=== PATIENT | female | born 1990 | race Caucasian/White ===

== ENCOUNTER 2018-09-17 02:07 | Observation (INO) | payer OTHER ==
--- NOTE | 2018-09-17 02:28 | ED Physician Documentation ---
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 She has increased pain in severity and increased bleeding. She notes the pain is cramping in nature. She is not lightheaded or dizzy. Review of Systems Constitutional: denies: Fever Eyes: denies: Decreased vision Ears: denies: Ear pain Nose: denies: Congestion Throat: denies: Sore throat Respiratory: denies: Dyspnea, Cough GI: reports: Abdominal Pain, Nausea, Vomiting : denies: Dysuria, Frequency Skin: denies: Rash Musculoskeletal: denies: Neck pain, Back pain Neurologic: denies: Generalized weakness, Focal weakness, Numbness PD PAST MEDICAL HISTORY - Past Medical History Past Medical History: Yes - Present Medications Home Medications: Ambulatory Orders Medication Instructions Recorded Confirmed No Known Home Medications 09/17/18 09/17/18 - Allergies Allergies/Adverse Reactions: Allergies Allergy/AdvReac Type Severity Reaction Status Date / Time No Known Drug Allergies Allergy Verified 09/17/18 02:14 - Social History Does the pt smoke?: No Smoking Status: Never smoker Does the pt drink ETOH?: Yes Does the pt have substance abuse?: No - Immunizations Immunizations are current?: Yes - POLST Patient has POLST: No PD ED PE NORMAL - Vitals Vital signs reviewed: Yes (tachy) - General General: Alert and oriented X 3, No acute distress, Well developed/nourished - HEENT HEENT: Atraumatic, PERRL - Neck Neck: Supple, no meningeal sign - Cardiac Cardiac: RRR, No murmur - Respiratory Respiratory: No respiratory distress, Clear bilaterally - Abdomen Abdomen: Soft, Other (tenderness in the left lower quadrant without gaurding or rebound ) - Back Back: No CVA TTP, No spinal TTP - Derm Derm: Normal color, Warm and dry, No rash - Extremities Extremities: No deformity, No edema, No calf tenderness / cord - Neuro Neuro: Alert and oriented X 3, straight cutter machine 2-12 intact, No motor deficit, No sensory deficit, Normal speech Eye Opening: Spontaneous Motor: Obeys Commands Verbal: Oriented GCS Score: 15 - Psych Psych: Normal mood, Normal affect Results - Vitals Vitals: Vital Signs - 24 hr 09/17/18 09/17/18 09/17/18 02:10 02:11 04:55 Temperature 36.2 C L 36.4 C L 36.1 C L Heart Rate 114 H 98 99 Respiratory 18 16 18 Rate Blood Pressure 130/71 126/80 125/80 O2 Saturation 100 100 100 Oxygen O2 Source Room air - Labs Labs: Laboratory Tests 09/17/18 09/17/18 09/17/18 02:35 04:50 04:50 WBC 11.5 H RBC 3.56 L Hgb 11.6 L Hct 35.9 L MCV 100.8 H MCH 32.6 H MCHC 32.3 RDW 12.5 Plt Count 244 MPV 10.4 Neut # (Auto) 8.5 H Lymph # (Auto) 1.9 [place] # (Auto) 1.0 Eos # (Auto) 0.0 Baso # (Auto) 0.1 Absolute Nucleated RBC 0.00 Nucleated RBC % 0.0 Sodium 137 Potassium 3.5 Chloride 98 L Carbon Dioxide 23 Anion Gap 16.0 H BUN 10 Creatinine 0.7 Estimated GFR (MDRD) 101 Glucose 113 H Calcium 9.1 Total Bilirubin 0.6 AST 19 ALT 18 Alkaline Phosphatase 50 Total Protein 7.5 Albumin 4.5 Globulin 3.0 Albumin/Globulin Ratio 1.5 Lipase 27 HCG, Quant 1521.00 - Rads (name of study) u/s pelvis Radiology: Prelim report reviewed (Impression: 1. No intrauterine gestational sac chemistry. There is a large blood clot in the pelvis, with moderate amount of fluid within the pelvis. Fluid also seen within Morison's pouch. Combined findings are worrisome for a ruptured ectopic .), EMP read indepedently, See rad report PD MEDICAL DECISION MAKING - ED course Complexity details: reviewed results, re-evaluated patient, considered differential, d/w patient ED course: 27-year-old female with a prior history of ectopic appears to have a ectopic that appears to have ruptured this morning.The patient has remained hemodynamically stable and Dr. Driver is consulted in the case, comes to the emergency department and will take the patient into the operating room. 2 units of blood are ordered 2 IVs are placed and the patient is prepared for surgery. Departure - Departure Disposition: ED Transfer to [facility] Clinical Impression: Ruptured ectopic
--- NOTE | 2018-09-17 04:38 | Ultrasound Report ---
Reason: cramping pain decreasing hcG ? ectopic Procedure Date: 09/17/2018 Accession Number: [id number] / [id number] Procedure: US - OB First Trimester CPT Code: FULL RESULT: EXAM: FIRST TRIMESTER OBSTETRIC ULTRASOUND (Less than 11 weeks) EXAM DATE: 09/17/2018 04:30 AM. CLINICAL HISTORY: Cramping pain, decreasing hcG, question ectopic. LMP: Unknown. COMPARISONS: None. TECHNIQUE: Transabdominal and transvaginal ultrasound examination with static image documentation. FINDINGS: LMP: 08/02/2018. Estimated gestational age: 6 weeks 4 days. . There is a large blood clot within the cul-de-sac region. Moderate amount of free fluid is noted, extending into the Morison's pouch. Uterus is normal in position and configuration. No intrauterine gestational sac demonstrated. Heterogeneous fluid within the endometrial cavity is noted, suggesting blood products. Normal appearance of the right ovary is noted, measuring 3.3 x 2.0 x 1.9 cm. Left ovary measures 3.6 x 2.2 x 2.7 cm. There is a small corpus luteum cyst within the left ovary. Normal blood flow to the left ovary. IMPRESSION: 1. No intrauterine gestational sac demonstrated. 2. There is a large blood clot within the pelvis, with a moderate amount of fluid within the pelvis. Fluid also seen within the Morison's pouch. Combined findings are worrisome for a ruptured ectopic . RADIA The call report notification system was initiated by Dr. Guille Oliva at 04:36 AM on 09/17/2018. The above call report findings were discussed with Davis Andrade by Dr. Guille lOiva at 04:39 AM on 09/17/2018.
[2018-09-17] MEDS ORDERED: LACTATED RINGERS 1,000 ML IV STA (04:53)
[2018-09-17 04:54] LABS: BASOPHILS # (AUTO) 0.1 10^3/uL (0.0-0.1); BASOPHILS % (AUTO) 0.5 %; EOSINOPHILS % (AUTO) 0.3 %; HGB - HEMOGLOBIN 11.6 g/dL (12.0-16.0); LYMPHOCYTES # (AUTO) 1.9 10^3/uL (1.5-3.5); LYMPHOCYTES % (AUTO) 16.3 %; MEAN CORPUSCULAR HEMOGLOBIN 32.6 pg (27.0-31.0); MEAN CORPUSCULAR HGB CONC 32.3 g/dL (32.0-36.0); MEAN CORPUSCULAR VOLUME 100.8 fL (81.0-99.0); MEAN PLATELET VOLUME 10.4 fL (7.9-10.8); MONOCYTES % (AUTO) 8.7 %; NEUTROPHILS # (AUTO) 8.5 10^3/uL (1.5-6.6); NEUTROPHILS % (AUTO) 73.9 %; PLT - PLATELET COUNT 244 10^3/uL (130-450); RED BLOOD COUNT 3.56 10^6/uL (4.20-5.40); RED CELL DISTRIBUTION WIDTH 12.5 % (12.0-15.0); WHITE BLOOD COUNT 11.5 x10^3/uL (4.8-10.8)
[2018-09-17 05:06] LABS: ALBUMIN 4.5 g/dL (3.2-5.5); ALBUMIN/GLOBULIN RATIO 1.5 (1.0-2.2); BILIRUBIN,TOTAL 0.6 mg/dL (0.2-1.0); CALCIUM 9.1 mg/dL (8.5-10.3); CREATININE 0.7 mg/dL (0.4-1.0); TOTAL PROTEIN 7.5 g/dL (6.7-8.2)
--- NOTE | 2018-09-17 05:29 | HISTORY & PHYSICAL EXAMINATION ---
HPI - History Obtained From History obtained from: Patient Exam limitations: No limitations - History of Present Illness Pain Quality: reports: Sharp (Rates pain 8/10) HPI Comment/Other: Ms Sullivan is a 27 yo with a history of ectopic presents with likely ruptured ectopic . S: Ms Sullivan reports and LMP of 08/02/18, providing an LANIE of 05/09/19 and estimated gestational age of 6w4d. She was being followed by [facility] for possible ectopic. She had an HCG of 2700 that had dropped to about 2200. She reports that the plan was to have methotrexate treatment on Wednesday. This evening she experienced worsening abdominal pain that became intolerable and she presented to the ER. She is noted to have a moderate amount of free fluid in the abdomen, extending to Gonzalez's pouch. No clear location of ectopic. Tachycardic to 114. BP wnl. Pain noted to be on left side. Hx of blood transfusion after prior ectopic. She is unsure of the prior 's locations. She underwent a D&C due to of unknown origin. The pathology did not support IUP and she was given methotrexate. For reasons that are unclear, she was transfused during or immediately after the D&C. No other surgeries. 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 No MICHELLE - POLST Patient has POLST: No Meds/Allgy - Home Medications Home Medications: Ambulatory Orders Medication Instructions Recorded Confirmed No Known Home Medications 09/17/18 09/17/18 - Allergies Allergies/Adverse Reactions: Allergies Allergy/AdvReac Type Severity Reaction Status Date / Time No Known Drug Allergies Allergy Verified 09/17/18 02:14 Review of Systems - All Other Systems All Other Systems: reports: Reviewed and negative - Other Findings Other Findings: As per HPI, remaining systems are negative Exam - Vital Signs Vital Signs: Vital Signs x48h Temp Pulse Resp BP Pulse Ox 09/17/18 04:55 97.0 F L 99 18 125/80 100 07/06/19 02:11 97.5 F L 98 16 126/80 100 09/17/18 02:10 97.2 F L 114 H 18 130/71 100 - Physical Exam General Appearance: positive: Mild distress Neck: positive: Nml inspection Respiratory: positive: No respiratory distress Cardiovascular: positive: Tachycardia Peripheral Pulses: positive: 2+ Abdomen: positive: Tenderness (Tender and moderately distended) Skin: positive: Color nml, Pallor Extremities: positive: Non-tender, Nml appearance Neurologic/Psychiatric: positive: Oriented x3, Mood/affect nml Results - Lab Results Fish Bones: 09/17/18 04:50 09/17/18 04:50 Other Lab Results: Lab Results x24hrs 09/17/18 09/17/18 09/17/18 Range/Units 04:50 04:50 02:35 WBC 11.5 H (4.8-10.8) x10^3/uL RBC 3.56 L (4.20-5.40) 10^6/uL Hgb 11.6 L (12.0-16.0) g/dL Hct 35.9 L (37.0-47.0) % MCV 100.8 H (81.0-99.0) fL MCH 32.6 H (27.0-31.0) pg MCHC 32.3 (32.0-36.0) g/dL RDW 12.5 (12.0-15.0) % Plt Count 244 (130-450) 10^3/uL MPV 10.4 (7.9-10.8) fL Neut # (Auto) 8.5 H (1.5-6.6) 10^3/uL Lymph # (Auto) 1.9 (1.5-3.5) 10^3/uL [place] # (Auto) 1.0 (0.0-1.0) 10^3/uL Eos # (Auto) 0.0 (0.0-0.7) 10^3/uL Baso # (Auto) 0.1 (0.0-0.1) 10^3/uL Absolute Nucleated RBC 0.00 x10^3/uL Nucleated RBC % 0.0 /100WBC Sodium 137 (135-145) mmol/L Potassium 3.5 (3.5-5.0) mmol/L Chloride 98 L (101-111) mmol/L Carbon Dioxide 23 (21-32) mmol/L Anion Gap 16.0 H (6-13) BUN 10 (6-20) mg/dL Creatinine 0.7 (0.4-1.0) mg/dL Estimated GFR (MDRD) 101 (>89) Glucose 113 H (70-100) mg/dL Calcium 9.1 (8.5-10.3) mg/dL Total Bilirubin 0.6 (0.2-1.0) mg/dL AST 19 (10-42) IU/L ALT 18 (10-60) IU/L Alkaline Phosphatase 50 (42-121) IU/L Total Protein 7.5 (6.7-8.2) g/dL Albumin 4.5 (3.2-5.5) g/dL Globulin 3.0 (2.1-4.2) g/dL Albumin/Globulin Ratio 1.5 (1.0-2.2) Lipase 27 (22-51) U/L HCG, Quant 1521.00 mIU/mL - Diagnostic Imaging Results Diagnostic Imaging Results: positive: Final report reviewed, Critical result Diagnostic Imaging Results Comments: Abdomen with moderate free fluid and large blood clot. Fluid extended to Gonzalez's Pouch c/w ruptured ectopic - Other Other Results/Comments: HCG 1521 HCt 35.9 Impression/Plan - Problem List Problem List: Ruptured ectopic -Radiology did not identify source of ectopic. Moderately free fluid in abdomen extending to Gonzalez's Pouch -patient currently stable with tachycardia -Consented to salpingectomy for ruptured ectopic. Anticipate open procedure for abdominal exploration. Consent includes transfusion. - Cefazolin 2g IV OCTOR -2 lines placed and typed and crossed for 2 units -Proceed to OR for emergent procedure
[2018-09-17] MEDS ORDERED: BUPIVACAINE 0.25% PF 30 ML VIAL ONE (05:47)
[2018-09-17] MEDS ORDERED: LIDOCAINE MPF 1%-EPI 1:200000 30 ML VIAL ONE (05:47)
--- NOTE | 2018-09-17 05:48 | ANESTHESIA ---
Pre-Anesthesia VS, & Labs - Diagnosis ruptured ectopic - Procedure open salphingectomy and treatment of ruptured ectopic Vital Signs: Temp Pulse Resp BP Pulse Ox 36.6 C 100 18 123/72 100 09/17/18 05:37 09/17/18 05:37 09/17/18 05:37 09/17/18 05:37 09/17/18 05:37 Height 5 ft 5 in Weight (kg) 65.771 kg Body Mass Index 24.1 - NPO >8 hours - Is Patient ?: Yes - Lab Results Current Lab Results: Laboratory Tests 09/17/18 04:50: Blood Type O POSITIVE, Antibody Screen NEGATIVE, Crossmatch IS Only See Detail 09/17/18 04:50: Sodium 137, Potassium 3.5, Chloride 98 L, Carbon Dioxide 23, Anion Gap 16.0 H, BUN 10, Creatinine 0.7, Estimated GFR (MDRD) 101, Glucose 113 H, Calcium 9.1, Total Bilirubin 0.6, AST 19, ALT 18, Alkaline Phosphatase 50, Total Protein 7.5, Albumin 4.5, Globulin 3.0, Albumin/Globulin Ratio 1.5, Lipase 27 09/17/18 04:50: WBC 11.5 H, RBC 3.56 L, Hgb 11.6 L, Hct 35.9 L, MCV 100.8 H, MCH 32.6 H, MCHC 32.3, RDW 12.5, Plt Count 244, MPV 10.4, Neut # (Auto) 8.5 H, Lymph # (Auto) 1.9, [place] # (Auto) 1.0, Eos # (Auto) 0.0, Baso # (Auto) 0.1, Absolute Nucleated RBC 0.00, Nucleated RBC % 0.0 09/17/18 02:35: HCG, Quant 1521.00 Fish Bones: 09/17/18 04:50 09/17/18 04:50 Home Medications and Allergies Home Medications: Ambulatory Orders No Known Home Medications 09/17/18 Active Medications Lactated Ringer's (Lr) 1,000 mls @ 50 mls/hr IV .Q20H STA Stop: 09/18/18 00:52 Last Admin: 09/17/18 04:50 Dose: 50 mls/hr No Known Home Medications 09/17/18 Allergies/Adverse Reactions: Allergies Allergy/AdvReac Type Severity Reaction Status Date / Time No Known Drug Allergies Allergy Verified 09/17/18 02:14 Anes History & Medical History - Anesthetic History Anesthesia Complications: reports: No previous complications - Medical History Cardiovascular: reports: None Pulmonary: reports: None Gastrointestinal: reports: None Urinary: reports: None Neuro: reports: None Musculoskeletal: reports: None Endocrine/Autoimmune: reports: None Smoking Status: Never smoker - Surgical History Gynecologic: Dilation and currettage Exam General: Alert Dental: WNL Mallampati classification: I Thyromental Distance: greater than 6 cm Respiratory: Lungs clear Cardiovascular: Regular rate Mental/Cognitive Status: Alert/Oriented X3 Plan Anesthesia Type: General Consent for Procedure(s) Verified and Reviewed: Yes Code Status: Attempt Resuscitation ASA classification: 2-Mild systemic disease Is this case an emergency?: Yes
[2018-09-17] MEDS ORDERED: ONDANSETRON 4 MG/2 ML VIAL IVP ONE (07:08)
[2018-09-17] MEDS ORDERED: LIDOCAINE-MPF 2% 5 ML VIAL IM ONE (07:08)
[2018-09-17] MEDS ORDERED: NEOSTIGMINE 1 MG/1 ML 10 ML MDV IVP ONE (07:08)
[2018-09-17] MEDS ORDERED: GLYCOPYRROLATE 1 MG/5 ML VIAL IVP ONE (07:08)
[2018-09-17] MEDS ORDERED: ACETAMINOPHEN 1,000 MG/100 ML 100 ML IV ONE (07:08)
[2018-09-17] MEDS ORDERED: HYDROmorphone 1 MG/ML SYRINGE IM ONE (07:08)
[2018-09-17] MEDS ORDERED: fentaNYL 100 MCG/2 ML VIAL IVP ONE (07:08)
[2018-09-17] MEDS ORDERED: ROCURONIUM 50 MG/5 ML VIAL IVP ONE (07:08)
[2018-09-17] MEDS ORDERED: ceFAZolin 1 GM VIAL IV ONE (07:08)
[2018-09-17] MEDS ORDERED: MIDAZOLAM 2 MG/2 ML VIAL IVP ONE (07:08)
[2018-09-17] MEDS ORDERED: PROPOFOL 200 MG/20 ML VIAL IVP ONE (07:08)
[2018-09-17] MEDS ORDERED: DEXAMETHASONE 4 MG/ML VIAL IVP ONE (07:08)
[2018-09-17] MEDS ORDERED: LIDOCAINE MPF 1%-EPI 1:200000 30 ML VIAL SUBQ ONE (07:32)
[2018-09-17] MEDS ORDERED: LACTATED RINGERS 1,000 ML IV ONE ×2 (07:34→07:35)
[2018-09-17] MEDS ORDERED: KETOROLAC 30 MG/ML VIAL ONE (08:05)
[2018-09-17] MEDS ORDERED: METOCLOPRAMIDE 10 MG/2 ML VIAL IVP PRN (08:06)
[2018-09-17] MEDS ORDERED: LORazepam 2 MG/ML VIAL IVP PRN (08:06)
[2018-09-17] MEDS ORDERED: ACETAMINOPHEN 325 MG TABLET PO PRN (08:06)
[2018-09-17] MEDS ORDERED: PHENOL THROAT SPRAY 177 ML MM PRN (08:06)
[2018-09-17] MEDS ORDERED: HYDROmorphone 0.5 MG/0.5 ML SYRINGE IVP PRN (08:06)
[2018-09-17] MEDS ORDERED: SODIUM CHLORIDE FLUSH 0.9% 10 ML SYRINGE IVP PRN (08:06)
[2018-09-17] MEDS ORDERED: ONDANSETRON 4 MG/2 ML VIAL IVP PRN (08:06)
[2018-09-17] MEDS ORDERED: IBUPROFEN 600 MG TABLET PO PRN (08:06)
--- NOTE | 2018-09-17 08:35 | OPERATIVE REPORT ---
Operative Report - General Admit Date: 09/17/18 Procedure Date: 09/17/18 Planned Procedure: Open salpingectomy/exploratory laparotomy Pre-Op Diagnosis: Ruptured ectopic Procedure Performed: Open salpingectomy, exploratory laparotomy Post Op Diagnosis: Same and hemoperitoneum - Procedure Note Primary Surgeon: Lalita Driver MD Secondary Surgeon: Davis Dotson MD Anesthesia Technique: General ET tube Pathology: Left fallopian tube, in fragments IV Fluids (mL): 1,100 Estimated Blood Loss (mL): 25 (1000 cc in abdomen) Indications: Ms Sullivan is a 27 yo here with suspected ruptured ectopic with hemoperitoneum on us imaging. Her LMP was 08/02/18, providing LANIE of 05/09/18, dating to 6w4d. Her initial HCG was 2700 and had dropped to 2200 and now ~1500 at presentation. Her provider had planned to administer Methotrexate on Wednesday. She developed severe abdominal pain overnight and was woken from sleep. Had emesis related to pain. Tachycardia in ER but BPs maintained in n ormal range. US showed moderate fluid in abdomen up to Gonzalez's pouch. Site of ectopic not indicated on imaging. Given high suspicion of rupture, will proceed to OR for exploratory laparotomy, anticipated salpingectomy, and D&C in the event that site of ectopic is not identified. Findings: Left fallopian tube with complete rupture at isthmus, edematous tissue. Estimat ed 1000 cc of blood in pelvis/abdomen. Normal appearing rght tube and ovaries bilaterally Complications: none - Other Other Information/Narrative: Ms. Sullivan presented to the ED with suspected ecoptic, severe abdominal pain, and evidence of hemoperitoneum on us imaging. Risks and benefits of the procedure were discussed and consent was obtained, including consent for transfusion. The patient was taken to the operating room where general anesthesia was administered without difficulty. She was placed in supine position. The patient was prepped and draped in the usual sterile fashion. A Pfannenstiel skin incision was made with scalpel and carried through to the underlying layer of fascia using the Bovie. The fascia was incised in the midline and extended laterally using Anita cautery. Smith clamps were used to grasp the superior aspect of the fascial incision, which was elevated and the underlying rectus mu scles were dissected off bluntly combined with cautery. Attention was then turned to the inferior aspect, which was grasped with Smith clamps, elevated and the underlying rectus muscles dissected up bluntly combined with cautery. The rectus muscles were dissected in the midline. The peritoneum was identified using blunt dissection and entered in this manner and extended superiorly and inferiorly with good visualization of the bladder. At this time, the blood found in the abdomen was suctioned. The bowel was packed with moist laparotomy sponge. The left fallopian tube was grossly ruptured. The fallopian tube was elevated with Nerstrand clamps and excised along the underlying mesosalpinx to the cornua using a laparoscopic Ligasure. A portion of the fimbriated end was noted to have from the bulk of the fallopian tube. It was similarly excised using the Ligasure device and sent for pathologic evaluation with the rest of the tubal specimen. Hemostasis was visualized. At this time, the right tube and ovary were examined and were found to be normal in appearance. The pelvis was cleared off clots and was copiously irrigated. The upper abdomen was similarly cleared of clots and irrigated. The left adnexa was reexamined and it was again noted to be hemostatic. At this time, the laparotomy sponges were removed. The peritoneum was reapproximated using 2-0 Vicryl in a running suture. The rectus muscles were reapproximated using 3-0 Vicryl. The fascia was reapproximated with looped PDS suture. The subcutaneous layer was closed with 2-0 Chromc gut. The skin was closed with subcutaneous suture using 4-0 Monocryl along the left 3/4 of the incision. The right quarter of the incison was closed with interrupted mattress suture x4 using 3-0 Nylon in an attempt to restore tattooed imagery. Sponge, lap, and instrument counts were correct x2. D&C was deemed not indicated. The patient was stable at the completion of the procedure and was subsequently transferred to the recovery room in stable condition. Dr. Dotson assisted with multiple portions of the procedure including retraction and incisional closure.
[2018-09-17] MEDS ORDERED: SODIUM CHLORIDE 0.9% 1,000 ML IV SCH (09:00)
[2018-09-17 09:51] LABS: BASOPHILS % (AUTO) 0.2 %; EOSINOPHILS # (AUTO) 0.2 10^3/uL (0.0-0.7); EOSINOPHILS % (AUTO) 1.8 %; HGB - HEMOGLOBIN 10.2 g/dL (12.0-16.0); LYMPHOCYTES # (AUTO) 0.7 10^3/uL (1.5-3.5); LYMPHOCYTES % (AUTO) 5.6 %; MEAN CORPUSCULAR HEMOGLOBIN 33.4 pg (27.0-31.0); MEAN CORPUSCULAR HGB CONC 33.6 g/dL (32.0-36.0); MEAN CORPUSCULAR VOLUME 99.7 fL (81.0-99.0); MONOCYTES # (AUTO) 0.4 10^3/uL (0.0-1.0); MONOCYTES % (AUTO) 3.4 %; NEUTROPHILS # (AUTO) 10.6 10^3/uL (1.5-6.6); NEUTROPHILS % (AUTO) 88.4 %; PLT - PLATELET COUNT 197 10^3/uL (130-450); RED BLOOD COUNT 3.05 10^6/uL (4.20-5.40); RED CELL DISTRIBUTION WIDTH 12.3 % (12.0-15.0)
[2018-09-17] MEDS: SODIUM CHLORIDE FLUSH 0.9% 10 ML SYRINGE IVP SCH ×2 (10:14→17:21)
[2018-09-17] MEDS: oxyCODONE 5 MG TABLET PO PRN ×2 (10:52→17:20)
[2018-09-17] MEDS: KETOROLAC 30 MG/ML VIAL IVP SCH ×2 (14:54→20:00)
[2018-09-17 18:52] LABS: MEAN CORPUSCULAR HEMOGLOBIN 32.7 pg (27.0-31.0); MEAN CORPUSCULAR VOLUME 102.2 fL (81.0-99.0); MEAN PLATELET VOLUME 10.5 fL (7.9-10.8); RED BLOOD COUNT 2.75 10^6/uL (4.20-5.40); RED CELL DISTRIBUTION WIDTH 12.5 % (12.0-15.0); WHITE BLOOD COUNT 12.1 x10^3/uL (4.8-10.8)
--- NOTE | 2018-09-17 19:12 | PROVIDER PROGRESS NOTE ---
Subjective - Prog Note Date Prog Note Date: 09/17/18 Prog Note Time: 19:10 - Subjective Pt reports feeling: Improved (Patient is POD#0 s/p exlap/open salpingectomy d/t rupture ectopic. Doing well. Tolerating po. Has been up to sitting in chair. Pain adequately managed. No dizziness or lightheadedness.) Objective - Vital Signs/Intake & Output Vital Signs: Vital Signs x48h Temp Pulse Resp BP Pulse Ox 09/17/18 16:55 98.1 F 92 18 106/64 100 09/17/18 15:54 81 108/56 L 09/17/18 12:55 98.4 F 91 18 107/59 L 98 Intake & Output: Intake & Output 09/14/18 09/15/18 09/16/18 09/17/18 23:59 23:59 23:59 23:59 Intake Total 1445 Output Total 1420 Balance 25 - Objective General Appearance: positive: No acute distress Respiratory: positive: No respiratory distress Abdomen: positive: Other (appropriately tender. Dressing with sreosang drainage expected given subQ administration of 30 cc of xylocaine at close of surgery) Skin: positive: Color nml Extremities: positive: Non-tender Neurologic/Psychiatric: positive: Oriented x3 - Lab Results Fish Bones: 09/17/18 18:45 09/17/18 04:50 Other Labs: Lab Results x24hrs 09/17/18 09/17/18 09/17/18 Range/Units 18:45 09:45 05:10 WBC 12.1 H 12.0 H (4.8-10.8) x10^3/uL RBC 2.75 L 3.05 L (4.20-5.40) 10^6/uL Hgb 9.0 L 10.2 L (12.0-16.0) g/dL Hct 28.1 L 30.4 L (37.0-47.0) % MCV 102.2 H 99.7 H (81.0-99.0) fL MCH 32.7 H 33.4 H (27.0-31.0) pg MCHC 32.0 33.6 (32.0-36.0) g/dL RDW 12.5 12.3 (12.0-15.0) % Plt Count 191 197 (130-450) 10^3/uL MPV 10.5 10.0 (7.9-10.8) fL Neut # (Auto) 10.6 H (1.5-6.6) 10^3/uL Lymph # (Auto) 0.7 L (1.5-3.5) 10^3/uL [place] # (Auto) 0.4 (0.0-1.0) 10^3/uL Eos # (Auto) 0.2 (0.0-0.7) 10^3/uL Baso # (Auto) 0.0 (0.0-0.1) 10^3/uL Absolute Nucleated RBC 0.00 x10^3/uL Nucleated RBC % 0.0 /100WBC Sodium (135-145) mmol/L Potassium (3.5-5.0) mmol/L Chloride (101-111) mmol/L Carbon Dioxide (21-32) mmol/L Anion Gap (6-13) BUN (6-20) mg/dL Creatinine (0.4-1.0) mg/dL Estimated GFR (MDRD) (>89) Glucose (70-100) mg/dL Calcium (8.5-10.3) mg/dL Total Bilirubin (0.2-1.0) mg/dL AST (10-42) IU/L ALT (10-60) IU/L Alkaline Phosphatase (42-121) IU/L Total Protein (6.7-8.2) g/dL Albumin (3.2-5.5) g/dL Globulin (2.1-4.2) g/dL Albumin/Globulin Ratio (1.0-2.2) Lipase (22-51) U/L HCG, Quant mIU/mL Blood Type Blood Type Recheck O POSITIVE Antibody Screen Crossmatch IS Only 09/17/18 09/17/18 09/17/18 Range/Units 04:50 04:50 04:50 WBC 11.5 H (4.8-10.8) x10^3/uL RBC 3.56 L (4.20-5.40) 10^6/uL Hgb 11.6 L (12.0-16.0) g/dL Hct 35.9 L (37.0-47.0) % MCV 100.8 H (81.0-99.0) fL MCH 32.6 H (27.0-31.0) pg MCHC 32.3 (32.0-36.0) g/dL RDW 12.5 (12.0-15.0) % Plt Count 244 (130-450) 10^3/uL MPV 10.4 (7.9-10.8) fL Neut # (Auto) 8.5 H (1.5-6.6) 10^3/uL Lymph # (Auto) 1.9 (1.5-3.5) 10^3/uL [place] # (Auto) 1.0 (0.0-1.0) 10^3/uL Eos # (Auto) 0.0 (0.0-0.7) 10^3/uL Baso # (Auto) 0.1 (0.0-0.1) 10^3/uL Absolute Nucleated RBC 0.00 x10^3/uL Nucleated RBC % 0.0 /100WBC Sodium 137 (135-145) mmol/L Potassium 3.5 (3.5-5.0) mmol/L Chloride 98 L (101-111) mmol/L Carbon Dioxide 23 (21-32) mmol/L Anion Gap 16.0 H (6-13) BUN 10 (6-20) mg/dL Creatinine 0.7 (0.4-1.0) mg/dL Estimated GFR (MDRD) 101 (>89) Glucose 113 H (70-100) mg/dL Calcium 9.1 (8.5-10.3) mg/dL Total Bilirubin 0.6 (0.2-1.0) mg/dL AST 19 (10-42) IU/L ALT 18 (10-60) IU/L Alkaline Phosphatase 50 (42-121) IU/L Total Protein 7.5 (6.7-8.2) g/dL Albumin 4.5 (3.2-5.5) g/dL Globulin 3.0 (2.1-4.2) g/dL Albumin/Globulin Ratio 1.5 (1.0-2.2) Lipase 27 (22-51) U/L HCG, Quant mIU/mL Blood Type O POSITIVE Blood Type Recheck Antibody Screen NEGATIVE Crossmatch IS Only See Detail 09/17/18 Range/Units 02:35 WBC (4.8-10.8) x10^3/uL RBC (4.20-5.40) 10^6/uL Hgb (12.0-16.0) g/dL Hct (37.0-47.0) % MCV (81.0-99.0) fL MCH (27.0-31.0) pg MCHC (32.0-36.0) g/dL RDW (12.0-15.0) % Plt Count (130-450) 10^3/uL MPV (7.9-10.8) fL Neut # (Auto) (1.5-6.6) 10^3/uL Lymph # (Auto) (1.5-3.5) 10^3/uL [place] # (Auto) (0.0-1.0) 10^3/uL Eos # (Auto) (0.0-0.7) 10^3/uL Baso # (Auto) (0.0-0.1) 10^3/uL Absolute Nucleated RBC x10^3/uL Nucleated RBC % /100WBC Sodium (135-145) mmol/L Potassium (3.5-5.0) mmol/L Chloride (101-111) mmol/L Carbon Dioxide (21-32) mmol/L Anion Gap (6-13) BUN (6-20) mg/dL Creatinine (0.4-1.0) mg/dL Estimated GFR (MDRD) (>89) Glucose (70-100) mg/dL Calcium (8.5-10.3) mg/dL Total Bilirubin (0.2-1.0) mg/dL AST (10-42) IU/L ALT (10-60) IU/L Alkaline Phosphatase (42-121) IU/L Total Protein (6.7-8.2) g/dL Albumin (3.2-5.5) g/dL Globulin (2.1-4.2) g/dL Albumin/Globulin Ratio (1.0-2.2) Lipase (22-51) U/L HCG, Quant 1521.00 mIU/mL Blood Type Blood Type Recheck Antibody Screen Crossmatch IS Only Assessment/Plan - Problem List (1) Ruptured ectopic Impression: Doing well Drop in HCT from 35 to 28, asymptomatic. Check CBC again in am. Repeat HCG Encourage ambulation Tolerating po Voiding Pain adequately managed Anticipate DC home in am
[2018-09-18] MEDS: KETOROLAC 30 MG/ML VIAL IVP SCH (01:16)
[2018-09-18] MEDS: SODIUM CHLORIDE FLUSH 0.9% 10 ML SYRINGE IVP SCH ×2 (01:17→10:43)
[2018-09-18 04:52] LABS: HGB - HEMOGLOBIN 8.8 g/dL (12.0-16.0); MEAN CORPUSCULAR HGB CONC 32.4 g/dL (32.0-36.0); MEAN CORPUSCULAR VOLUME 101.9 fL (81.0-99.0); MEAN PLATELET VOLUME 10.3 fL (7.9-10.8); RED BLOOD COUNT 2.67 10^6/uL (4.20-5.40); RED CELL DISTRIBUTION WIDTH 12.5 % (12.0-15.0); WHITE BLOOD COUNT 9.7 x10^3/uL (4.8-10.8)
[2018-09-18 08:19] VITALS: BP 110/66
--- NOTE | 2018-09-18 08:48 | PROVIDER PROGRESS NOTE ---
Subjective - Prog Note Date Prog Note Date: 09/18/18 Prog Note Time: 08:00 - Subjective Pt reports feeling: Improved (Doing well. Pain well managed. Has been up and ambulating, tolerating po. Voiding. No concerns) Objective - Vital Signs/Intake & Output Vital Signs: Vital Signs x48h Temp Pulse Resp BP Pulse Ox 09/18/18 08:19 99.0 F 106 H 16 110/66 100 09/18/18 04:45 99.3 F 93 16 102/59 L 98 09/18/18 01:00 98.4 F 92 16 92/52 L 98 Intake & Output: Intake & Output 09/15/18 09/16/18 09/17/18 09/18/18 23:59 23:59 23:59 23:59 Intake Total 1888 Output Total 2120 1100 Balance -232 -1100 - Objective General Appearance: positive: No acute distress, Other (Sitting up in chair) Neck: positive: Nml inspection Respiratory: positive: No respiratory distress Abdomen: positive: Other (Mild/appropriately tender. No distention. No guarding. Incision: Dressing removed. Steris stained with serosang fluid but otherwise CDI) Skin: positive: Color nml - Lab Results Fish Bones: 09/18/18 04:40 09/17/18 04:50 Other Labs: Lab Results x24hrs 09/18/18 09/18/18 09/17/18 Range/Units 04:40 04:40 18:45 WBC 9.7 12.1 H (4.8-10.8) x10^3/uL RBC 2.67 L 2.75 L (4.20-5.40) 10^6/uL Hgb 8.8 L 9.0 L (12.0-16.0) g/dL Hct 27.2 L 28.1 L (37.0-47.0) % MCV 101.9 H 102.2 H (81.0-99.0) fL MCH 33.0 H 32.7 H (27.0-31.0) pg MCHC 32.4 32.0 (32.0-36.0) g/dL RDW 12.5 12.5 (12.0-15.0) % Plt Count 176 191 (130-450) 10^3/uL MPV 10.3 10.5 (7.9-10.8) fL Neut # (Auto) (1.5-6.6) 10^3/uL Lymph # (Auto) (1.5-3.5) 10^3/uL Levy # (Auto) (0.0-1.0) 10^3/uL Eos # (Auto) (0.0-0.7) 10^3/uL Baso # (Auto) (0.0-0.1) 10^3/uL Absolute Nucleated RBC x10^3/uL Nucleated RBC % /100WBC HCG, Quant 660.00 mIU/mL 09/17/18 Range/Units 09:45 WBC 12.0 H (4.8-10.8) x10^3/uL RBC 3.05 L (4.20-5.40) 10^6/uL Hgb 10.2 L (12.0-16.0) g/dL Hct 30.4 L (37.0-47.0) % MCV 99.7 H (81.0-99.0) fL MCH 33.4 H (27.0-31.0) pg MCHC 33.6 (32.0-36.0) g/dL RDW 12.3 (12.0-15.0) % Plt Count 197 (130-450) 10^3/uL MPV 10.0 (7.9-10.8) fL Neut # (Auto) 10.6 H (1.5-6.6) 10^3/uL Lymph # (Auto) 0.7 L (1.5-3.5) 10^3/uL Levy # (Auto) 0.4 (0.0-1.0) 10^3/uL Eos # (Auto) 0.2 (0.0-0.7) 10^3/uL Baso # (Auto) 0.0 (0.0-0.1) 10^3/uL Absolute Nucleated RBC 0.00 x10^3/uL Nucleated RBC % 0.0 /100WBC HCG, Quant mIU/mL Assessment/Plan - Problem List (1) Ruptured ectopic Impression: POD#1 s/p ex-lap/open salpingectomy for ruptured ectopic -Doing well post op. Meeting goals for discharge -HCT relatively stable -HCG showed additional drop of about 66% -Routine dc instructions reviewed -FU in clinic in one week for suture removal
[2018-09-18] MEDS ORDERED: POLYETHYLENE GLYCOL 3350 17 GM PACKET PO SCH (09:00)
--- NOTE | 2018-09-18 09:13 | DISCHARGE SUMMARY ---
"Discharge Summary Admit Date: 09/17/18 Discharge Date: 09/18/18 Discharging Provider: MD Neisha Code Status: Attempt Resuscitation Condition at Discharge: Good Discharge Disposition: 01 Home, Self Care Discharge Facility Name: [facility] - DIAGNOSES Admission Diagnoses: Ruptured ectopic Discharge Diagnoses with Status of Each Condition: Ruptured ectopic : managed with emergent exploratory laparotomy and salpingectomy - HPI History of Present Illness: Ms Sullivan is a 27 yo with a history of ectopic presents with likely ruptured ectopic . Ms Sullivan reported an LMP of 08/02/18, providing an LANIE of 05/09/19 and estim ated gestational age of 6w4d. She was being followed by [facility] for possible ectopic. She had an HCG of 2700 that had dropped to about 2200. She reports that the plan was to have methotrexate treatment on 09/19/18. The evening of presentation she experienced worsening abdominal pain that became intolerable and she presented to the ER. She is noted to have a moderate amount of free fluid in the abdomen, extending to Gonzalez's pouch. No clear location of ectopic. Tachycardic to 114. BP wnl. Pain noted to be on left side. Hx of blood transfusion after prior ectopic. She is unsure of the prior 's locations. She underwent a D&C due to of unknown origin. The pathology did not support IUP and she was given methotrexate. For reasons that are unclear, she was transfused during or immediately after the D&C. No other surgeries. - HOSPITAL COURSE Hospital Course: Ms Sullivan was taken to the OR for an exploratory laparotomy and open salpingectomy. She was estimated to have more than a liter of blood in her abdomen. Her left fallopian tube had ruptured in a semi-stellate fashion. It was excised as described in the surgical report. She was admitted for postoperative observation given acute blood loss anemia. Post op course was uncomplicated. She was discharged to home on POD#1. - ALLERGIES Allergies/Adverse Reactions: Allergies Allergy/AdvReac Type Severity Reaction Status Date / Time No Known Drug Allergies Allergy Verified 09/17/18 02:14 - MEDICATIONS Home Medications: Ambulatory Orders Medication Instructions Recorded Confirmed No Known Home Medications 09/17/18 09/17/18 Home Medications Other | Comments: Discharge home with paper Rx for: oxycodone 5 mg tabs #24, O RF Ibuprofen 600 mg tabs #90, one RF Acetaminophen 325 mg #90, one RF Docusate 100 mg #90, one RF - PHYSICAL EXAM AT DISCHARGE General Appearance: positive: No acute distress Neck: positive: Nml inspection Respiratory: positive: No respiratory distress Skin: positive: Color nml Extremities: positive: Non-tender, No pedal edema Physical Exam Other/Comments: ABD: Soft and ND, appropriately tender. Steristrips with serosang drainage and otherwise CDI. - LABS Result Diagrams: 09/18/18 04:40 09/17/18 04:50 - FOLLOW UP Follow Up: FU in clinic in one week for suture removal. - TIME SPENT Time Spent in Discharge (Minutes): 45"
== END 2018-09-18 09:50 | disposition home or self-care (01) ==
LOC: ED 02:07 → MS2 05:12 → INTOOBSV 05:12
PROVIDERS: ADMIT Obstetrics & Gynecology; ATTEND Obstetrics & Gynecology
PROC: 10T20ZZ Resection of Products of Conception, Ectopic, Open Approach (ICD-10-PCS; principal; 2018-09-17 06:00)
DX: O00.102 Left tubal pregnancy without intrauterine pregnancy (principal); O08.1 Delayed or excessive hemorrhage following ectopic and molar pregnancy; O90.81 Anemia of the puerperium; D62 Acute posthemorrhagic anemia; L81.8 Other specified disorders of pigmentation
CPT/HCPCS: 36415; 59120; 76801; 76817; 80053; 83690; 84702; 85025; 85027; 86850; 86900; 86901; 86920; 99284; A9270; G0378; J0131; J1170; J7120

== ENCOUNTER 2018-09-23 09:48 | Outpatient (CLI) | payer OTHER | END 2018-09-23 09:49 | disposition home or self-care (01) | LOC: LAB 09:48 | PROVIDERS: ATTEND Obstetrics & Gynecology | DX: O00.90 Unspecified ectopic pregnancy without intrauterine pregnancy (principal); Z98.890 Other specified postprocedural states | CPT/HCPCS: 36415; 84702 ==

== ENCOUNTER 2018-10-07 13:59 | Outpatient (CLI) | payer OTHER | END 2018-10-07 14:00 | disposition home or self-care (01) | LOC: LAB 13:59 | PROVIDERS: ATTEND Nurse Practitioner Obstetrics & Gynecology | DX: O00.90 Unspecified ectopic pregnancy without intrauterine pregnancy (principal); Z79.890 Hormone replacement therapy | CPT/HCPCS: 36415; 84702 ==

== ENCOUNTER 2020-04-19 08:00 | Outpatient (CLI) | payer OTHER | END 2020-04-19 23:59 | disposition home or self-care (01) | LOC: LAB.R 08:00 | PROVIDERS: ATTEND Nurse Practitioner Obstetrics & Gynecology | DX: Z36.85 Encounter for antenatal screening for Streptococcus B (principal) | CPT/HCPCS: 87797 ==

== ENCOUNTER 2020-05-03 19:31 | Inpatient (IN) | payer OTHER ==
[2020-05-03] MEDS ORDERED: LACTATED RINGERS 1,000 ML IV ONE (19:55)
[2020-05-03] MEDS ORDERED: SODIUM CHLORIDE FLUSH 0.9% 10 ML SYRINGE IVP PRN (19:55)
[2020-05-03 20:14] LABS: RUPTURE OF MEMBRANES PLUS POSITIVE (NEGATIVE)
[2020-05-03] MEDS ORDERED: ONDANSETRON 4 MG/2 ML VIAL IVP PRN (20:46)
[2020-05-03] MEDS ORDERED: OXYTOCIN 10 UNIT/ML VIAL IM PRN (20:46)
[2020-05-03] MEDS ORDERED: miSOPROStoL 200 MCG TABLET BC PRN (20:46)
[2020-05-03] MEDS ORDERED: OXYTOCIN/SODIUM CHLORIDE 500 ML IV PRN (20:46)
[2020-05-03] MEDS ORDERED: CARBOPROST TROMETHAMINE 250 MCG/ML AMP IM PRN (20:46)
[2020-05-03] MEDS ORDERED: LIDOCAINE-MPF 1% 30 ML VIAL ID PRN (20:46)
[2020-05-03] MEDS ORDERED: METHYLERGONOVINE 0.2 MG/ML VIAL IM PRN (20:46)
[2020-05-03] MEDS ORDERED: TRANEXAMIC ACID IN NACL 1,000 MG/100 ML BAG IV PRN (20:46)
[2020-05-03] MEDS ORDERED: fentaNYL 100 MCG/2 ML VIAL IVP PRN (20:46)
[2020-05-03 20:54] LABS: BASOPHILS # (AUTO) 0.1 10^3/uL (0.0-0.1); BASOPHILS % (AUTO) 0.5 %; EOSINOPHILS # (AUTO) 0.1 10^3/uL (0.0-0.7); EOSINOPHILS % (AUTO) 0.8 %; HGB - HEMOGLOBIN 12.5 g/dL (12.0-16.0); MEAN CORPUSCULAR HEMOGLOBIN 29.8 pg (27.0-31.0); MEAN CORPUSCULAR HGB CONC 32.6 g/dL (32.0-36.0); MEAN CORPUSCULAR VOLUME 91.6 fL (81.0-99.0); MEAN PLATELET VOLUME 11.5 fL (7.9-10.8); MONOCYTES # (AUTO) 1.1 10^3/uL (0.0-1.0); MONOCYTES % (AUTO) 9.5 %; NEUTROPHILS # (AUTO) 8.3 10^3/uL (1.5-6.6); NEUTROPHILS % (AUTO) 70.3 %; PLT - PLATELET COUNT 230 10^3/uL (130-450); RED BLOOD COUNT 4.19 10^6/uL (4.20-5.40); RED CELL DISTRIBUTION WIDTH 13.8 % (12.0-15.0); WHITE BLOOD COUNT 11.9 x10^3/uL (4.8-10.8)
--- NOTE | 2020-05-03 21:13 | HISTORY & PHYSICAL EXAMINATION ---
Admit History - Visit Reason Visit Reason: Membranes rupture (@ 1900 w/o labor) - : 4 Parity: 0 Premature: 0 Ectopic: 2 : 1 Care: positive: [facility], Other ([facility] after transfer of care from [facility] at 31.3wks) Risk/History: positive: None Complications This : positive: None Smoking Status: Never smoker - Mother's Labs Mother's Blood Type: positive: O Mother's RH: positive: Positive GBS: positive: Group B Step Negative Rubella Status: positive: Immune - Other Maternal History Other Maternal History: -29yo at 38.5wks gestation who presents to Labor and Delivery with reports of loss of fluid without contractions. She felt the first gush at 1900 and reports the fluid as clear -Reports movement -Denies ctx/VB - care with [facility] which has been adequate after transfer of care from [facility] at 31.3wks - Complications -none -Dating Criteria -at 10.0wks c/w LMP -OB Hx (patient would not like to discuss history with partner present) *G1: 2017- ectopic *G2: 2019- ectopic *G3: 2019 TAB *G4: Current -Medications * vitamin-daily -Allergies *NKDA -Medical History *Ectopic x2 -Surgical History *Removal of fallopian tube/ex lap (2018) *Dilatation & Curettage (2016) *Buchtel teeth (2010) -Family History *Mother- MVA *Father- MT at age <55 -Social History *Non contributory - Labs, Immunizations, and Findings Initial U/S: @ 10.0wks c/w LMP dating performed by [facility] O pos/Rubella immune VZV: immune Genetic testing: CF negative; serum integrated screen - negative FAS: 12/26/2019 FAS WNL with the exception of poor visualization of cardiac structurs and stomach. Posterior placenta, no previa. 3VC. Size c/w dating. Completion FAS: 01/02/2020 WNL. Glucola: 1 hr 173; 3 hour WNL (71, 140, 107, 133) Influenza: 01/2020 [facility] TDAP 02/20/2020 GBS at 36.5- neg HSV: denies in self and partner Breast pump Rx - has MOD: Anticipate ; Abimael; It's a BOY! Lui; desires epidural for pain management; pp contraception: POPs pap:10/18/2019 WNL -SVE deferred -ROM+- positive -Vertex jorge -EFW by geraldine'pricila- 8# -FHTs per flowsheet -Assessment *29yo at 38.5weeks who presents with PROM -after discussion of ACOG recommendations, pt elects to wait 4 hours from rupture before starting augmentation. * Heart Tones- Category I-II related to tachycardia- intermittently. -in visits, fetus typically is in 150s-160. Will hydrate via IV and monitor maternal temps -Plan *Admit to L&D for *Augmentation with Misoprostol or Pitocin per RN SVE assessment at 4 hours if no significant increased uterine activity *Monitoring- Continuous (may to intermittent per protocol when Cat I) *Comfort measures available- position changes, whirlpool tub, fentanyl, and epidural per maternal preference *Diet/Activity- per maternal preference *Anticipate Meds/Allgy - Home Medications Home Medications: Ambulatory Orders Medication Instructions Recorded Confirmed No Known Home Medications 09/17/18 09/17/18 - Allergies Allergies/Adverse Reactions: Allergies Allergy/AdvReac Type Severity Reaction Status Date / Time No Known Drug Allergies Allergy Verified 09/17/18 02:14 Review of Systems - All Other Systems All Other Systems: reports: Reviewed and negative Physical - Abdominal Exam Vital Signs: Temp Pulse Resp BP Pulse Ox 37.8 C 131 H 20 142/91 H 97 05/03/20 19:52 05/03/20 19:52 05/03/20 19:52 05/03/20 19:52 05/03/20 19:52 Contraction Frequency (min/apart): 3-8 Contraction Intensity: positive: Mild Uterine Resting Tone: positive: Soft - Monitoring Heart Rate Baseline: 160 Strip Review: positive: Category II - Presentation Presentation: positive: Vertex - Vaginal Exam Membranes: positive: Membranes ruptured Plan for Labor - Plan For Labor I expect patient to be DC'd or transferred within 96 hours.: Yes
[2020-05-04] MEDS: LACTATED RINGERS 1,000 ML IV SCH ×4 (03:53→17:30)
[2020-05-04] MEDS ORDERED: ROPIVACAINE 0.2% 200 MG/100 ML BAG EP ONE (04:07)
[2020-05-04] MEDS ORDERED: ePHEDrine 50 MG/ML VIAL IVP PRN (04:33)
[2020-05-04] MEDS ORDERED: METOCLOPRAMIDE 10 MG/2 ML VIAL IVP PRN (04:33)
[2020-05-04] MEDS ORDERED: NALOXONE 0.4 MG/ML VIAL IVP PRN (04:33)
[2020-05-04] MEDS ORDERED: ONDANSETRON 4 MG/2 ML VIAL IVP PRN (04:33)
[2020-05-04] MEDS ORDERED: diphenhydrAMINE INJ 50 MG/ML VIAL IVP PRN (04:33)
[2020-05-04] MEDS ORDERED: NALBUPHINE 10 MG/ML AMP IVP PRN (04:33)
--- NOTE | 2020-05-04 04:36 | ANESTHESIA ---
Pre-Anesthesia VS, & Labs - Diagnosis term labor, IUP - Procedure epidural for Vital Signs: Temp Pulse Resp BP Pulse Ox 37.8 C 131 H 20 142/91 H 97 05/03/20 19:52 05/03/20 19:52 05/03/20 19:52 05/03/20 19:52 05/03/20 19:52 Height: 5 ft 5 in Weight (kg): 91.626 kg Body Mass Index: 33.6 BMI Classification: Obese - NPO Last Fluid Intake: t/o morning Last Food Intake: full dinner - Is Patient ?: Yes - Lab Results Current Lab Results: Laboratory Tests 05/03/20 21:48: Blood Type O POSITIVE, Antibody Screen NEGATIVE 05/03/20 20:25: WBC 11.9 H, RBC 4.19 L, Hgb 12.5, Hct 38.4, MCV 91.6, MCH 29.8, MCHC 32.6, RDW 13.8, Plt Count 230, MPV 11.5 H, Neut # (Auto) 8.3 H, Lymph # (Auto) 2.0, [place] # (Auto) 1.1 H, Eos # (Auto) 0.1, Baso # (Auto) 0.1, Absolute Nucleated RBC 0.00, Nucleated RBC % 0.0 Lab results reviewed: Yes Fish Bones: 05/03/20 20:25 Home Medications and Allergies Active Medications Carboprost Tromethamine (Carboprost Tromethamine 250 Mcg/Ml Amp) 250 mcg IM Q15M PRN PRN Reason: Step 4: Hemorrhage protocol Stop: 05/08/20 20:47 Fentanyl (Fentanyl 100 Mcg/2 Ml Vial) 50 mcg IVP Q1H PRN PRN Reason: PAIN Lactated Ringer's (Lr) 1,000 mls @ 150 mls/hr IV .Q6H40M CAITY Last Admin: 05/04/20 03:53 Dose: 150 mls/hr Documented by: Oxytocin/Sodium Chloride (Pitocin/Sodium Chloride) 500 mls @ 999 mls/hr IV PRN PRN; Protocol PRN Reason: POST- HEMORR PREVENTION Stop: 05/08/20 20:47 Tranexamic Acid (Tranexamic 1,000 Mg/100ml-Nacl) 1,000 mg in 100 mls @ 600 mls/hr IV .ONCE PRN PRN Reason: EBL >1200mL and within 3hr Stop: 05/08/20 20:47 Lidocaine HCl (Lidocaine-Mpf 1% 30 Ml Vial) 30 ml ID .ONCE PRN PRN Reason: PERINEAL REPAIR Stop: 05/08/20 20:47 Methylergonovine Maleate (Methylergonovine 0.2 Mg/Ml Vial) 0.2 mg IM .ONCE PRN PRN Reason: Step 2: Hemorrhage protocol Stop: 05/08/20 20:47 Misoprostol (Misoprostol 200 Mcg Tablet) 800 mcg BC .ONCE PRN PRN Reason: Step 3: Hemorrhage protocol Stop: 05/08/20 20:47 Ondansetron HCl (Ondansetron 4 Mg/2 Ml Vial) 4 mg IVP Q4H PRN PRN Reason: Nausea / Vomiting Oxytocin (Oxytocin 10 Unit/Ml Vial) 10 unit IM .ONCE PRN PRN Reason: Step one: If no IV access Stop: 05/08/20 20:47 Sodium Chloride (Sodium Chloride Flush 0.9% 10 Ml Syringe) 10 ml IVP PRN PRN PRN Reason: NEEDED PER PROVIDER ORDERS No Known Home Medications 09/17/18 Allergies/Adverse Reactions: Allergies Allergy/AdvReac Type Severity Reaction Status Date / Time No Known Drug Allergies Allergy Verified 09/17/18 02:14 Anes History & Medical History - Anesthetic History Anesthesia Complications: reports: No previous complications Family history of Anesthesia Complications: Denies Family history of Malignant Hyperthermia: Denies - Medical History Cardiovascular: reports: None Pulmonary: reports: None Gastrointestinal: reports: None Urinary: reports: None Neuro: reports: None Musculoskeletal: reports: None Endocrine/Autoimmune: reports: None Smoking Status: Never smoker - Surgical History Gynecologic: Dilation and currettage Other Past Surgical History: wisdon teeth - Obstetrical History : 4 Parity: 0 Events: positive: None Complications: positive: None Exam General: Alert, Oriented x3, Cooperative Dental: WNL Mouth Openin Fingerbreadth Neck Mobility: Normal Mallampati classification: II Respiratory: No respiratory distress Cardiovascular: Regular rate (tachy) Neurological: Normal speech Mental/Cognitive Status: Alert/Oriented X3, Normal for patient Plan Anesthesia Type: Epidural Consent for Procedure(s) Verified and Reviewed: Yes Code Status: Attempt Resuscitation ASA classification: 2-Mild systemic disease Is this case an emergency?: No
[2020-05-04] MEDS: OXYTOCIN/SODIUM CHLORIDE 500 ML IV SCH (04:54)
[2020-05-04] MEDS: ROPIVACAINE 0.2% 200 MG/100 ML BAG EP PRN ×2 (10:21→16:55)
--- NOTE | 2020-05-04 12:58 | PROVIDER PROGRESS NOTE ---
Labor Progress Note - Uterine Monitoring Uterine Monitoring Mode: positive: External toco, IUPC Contraction Frequency (min/apart): 2-4 Contraction Intensity: positive: Mild to moderate Uterine Resting Tone: positive: Soft - Monitoring Monitor Mode: positive: External ultrasound Heart Rate Baseline: 150 Heart Rate Variability: positive: Moderate (6-25 bmp) Accelerations: positive: Present, 15x15 Decelerations: positive: None Strip Review: positive: Category I - Vaginal Exam Dilation (in cm): 4 Effacement (%): 80 Station: -2 Cervical Position: Midposition - Labor Progress Note Labor Progress Note/Additional Text: S: Adriana is comfortable with an epidural, FOB supportive at bedside. O: SVE unchanged from fluxer exam Pitocin at 8mU/min A: 29yo with PROM at 1900 last night Inadequate uterine contractions for cervical change FHT Cat I P: IUPC placed Titrate pitocin to MVUs Recheck cervix after 2-4 hours of adequate contractions Anticipate
[2020-05-04] MEDS ORDERED: fentaNYL 100 MCG/2 ML VIAL ONE (19:41)
[2020-05-04] MEDS ORDERED: BUPIVACAINE 0.25% PF 10 ML VIAL ONE (19:41)
[2020-05-05] MEDS ORDERED: WITCH HAZEL/GLYCERIN 1 PAD TOP PRN (00:30)
--- NOTE | 2020-05-05 00:41 | DELIVERY NOTE ---
Delivery Note - Labor Labor: positive: Spontaneous, Augmented by oxytocin - Delivery Method Delivery Method: positive: Spontaneous vaginal delivery - Presentation Presentation: positive: Vertex, CROW - left occiput anterior - Nuchal Cord Nuchal Cord: positive: Present - Anesthetic Anesthetic Type: - Amniotic Fluid Description Amniotic Fluid Description: positive: Clear - Laceration Laceration: positive: 2nd degree, Perineal - Suture Suture Type: positive: Vicryl Suture Size: positive: 2-0, 3-0 - Delivery Outcome Delivery Outcome: positive: Livebirth - [place]: positive: Bulb syringe, Stimulated, [place] used, Warmer used [place] sex: positive: Male : 6 : 8 - Cord Cord: positive: 3 vessels - Placenta Placenta: positive: Intact, Spontaneous - Estimated Blood Loss Estimated Blood Loss (in cc): 300 - Post Delivery Events Post Delivery Events: positive: No post delivery events - Delivery Comments (Free Text/Narrative) Delivery Comments (Free Text/Narrative): Note: Labor: This 29 year old, , @38.5 wks gestation by 10.0week Ultrasound, confirmed by LMP, presented with PROM with clear fluid at 1900 on 05/03/2020. Cervical exam was deferred at that time. FHR pattern demonstrated 150-165 baseline in a Category I pattern, with intermittent periods of Cat II for tachycardia throughout labor, maintained moderate variability. Pitocin utilized for labor augmentation. Epidural placed upon maternal request. She progressed to complete at 2159 and began pushing. Cat II strip during second stage due to intermittent tachycardia, moderate variability and accelerations maintained. : of a 3580gm male infant, named Lui, on 05/04/2020 @ 2348 following a thirty second shoulder dystocia which Juan Carlos was effective in reducing. Nuchal present and tight, so sommersaulted through. The was placed on maternal abdomen, stimulated, dried, then brought to the warmer for further resuscitation. Apgars 6 at one minute and 8 at five minutes. The umbilical cord was cut promptly for transfer to [facility], at which time it was doubly clamped by CNM and cut by FOB. Pitocin administered via IV for hemostasis, and methergine given IM for further prevention of hemorrhage. Fundal massage and gentle cord traction applied for active third stage management. Cord blood was obtained. Placenta delivered spontaneously and intact at approx. 2353. Three vessel cord. EBL 300mL. Fourth Stage: Uterine fundus firm and without excessive bleeding. The perineum, vagina, and cervix were inspected and found to have sustained a second degree perineal laceration. This was repaired under sterile conditions, in standard fashion, with a 2-0 vicryl and 3-0 vicryl. Vaginal examination following repair was done. Tissues well approximated. Peds examined baby at warmer. Both mother and baby are in stable condition.
[2020-05-05] MEDS: IBUPROFEN 600 MG TABLET PO SCH ×4 (01:43→19:45)
[2020-05-05] MEDS: ACETAMINOPHEN 500 MG TABLET PO SCH ×3 (01:45→19:45)
[2020-05-05] MEDS: LACTATED RINGERS 1,000 ML IV SCH (04:56)
[2020-05-05] MEDS: HYDROCORTISONE 1% CREAM 28 GM TUBE PR PRN ×2 (06:23→23:53)
[2020-05-05] MEDS: DOCUSATE SODIUM 100 MG CAPSULE PO SCH ×2 (08:02→20:03)
--- NOTE | 2020-05-05 14:57 | PROVIDER PROGRESS NOTE ---
Subjective - Prog Note Date Prog Note Date: 05/05/20 Prog Note Time: 14:54 - Subjective Pt reports feeling: Improved Subjective: S: Adriana is resting in bed, and baby is sleeping peacefully in the bassinet. FOB is supportive at bedside. She reports her pain is well controlled with NSAIDs and that her bleeding is like a light period. Baby latches well and has been feeding every 2-3 hours. O: Lochia rubra Fundus firm A: 29yo s/p on 05/04/2020 pp day 1 Normal recovery P: continue with routine care Evaluate for discharge home tomorrow Educated to normal bleeding, suture care/dissolving time frame, and follow up at 1 and 6 weeks Objective - Vital Signs/Intake & Output Vital Signs: Vital Signs x48h Temp Pulse Resp BP BP Pulse Ox 05/05/20 11:55 36.5 C 97 16 111/67 99 05/05/20 08:07 36.6 C 105 H 18 109/68 97 05/05/20 08:06 36.6 C 105 H 18 109/68 97 Intake & Output: Intake & Output 05/02/20 05/03/20 05/04/20 05/05/20 23:59 23:59 23:59 23:59 Intake Total 832.5 2042.5 1750 Output Total 2250 1 Balance 832.5 -207.5 1749 - Lab Results Fish Bones: 05/03/20 20:25
[2020-05-05] MEDS: OXYTOCIN/SODIUM CHLORIDE 500 ML IV SCH (15:12)
[2020-05-06] MEDS: IBUPROFEN 600 MG TABLET PO SCH ×2 (01:54→09:06)
[2020-05-06] MEDS: ACETAMINOPHEN 500 MG TABLET PO SCH ×2 (04:04→11:59)
[2020-05-06 07:29] VITALS: BP 107/68
--- NOTE | 2020-05-06 08:52 | PROVIDER PROGRESS NOTE ---
Subjective - Subjective Subjective: FINAL PROGRESS NOTE: S: Bonding well with baby. without difficulty. Bleeding decreased and is minimal. Pain well controlled with ibuprofen and tylenol. Some discomfort when sitting directly on bottom or when walking around more. Overall she states she is feeling fine. They strongly desire to go home today O: BP 107/68, T 36.6, HR 85, RR 16 Heart RRR w/o M/G/R, lungs CTAB, abdomen soft and nontender, fundus firm at U-2, perineum intact, repair with mild edema, light lochia rubra, bilateral LE's no edema. Mood is good. A: 29yo -->P1 PPD#2 Perineum intact P: Reviewed pp self care and warning s/sx and when to present. Encouraged continuation of vitamin while . Continue ibuprofen and tylenol OTC as needed for pain management. F/u in 1 week for routine pp visit or sooner PRN. Pt has emergency contact information. Objective - Vital Signs/Intake & Output Vital Signs: Vital Signs x48h Temp Pulse Resp BP Pulse Ox 05/06/20 07:28 36.6 C 85 16 107/68 100 05/06/20 04:14 36.5 C 92 16 105/58 L 99 Intake & Output: Intake & Output 05/03/20 05/04/20 05/05/20 05/06/20 23:59 23:59 23:59 23:59 Intake Total 832.5 2042.5 3250.5 Output Total 2250 1 Balance 832.5 -207.5 3249.5 - Lab Results Fish Bones: 05/03/20 20:25 Other Labs: Lab Results x24hrs 05/03/20 Range/Units 21:15 Coronavirus (PCR) NEGATIVE
--- NOTE | 2020-05-06 08:53 | Discharge Plan ---
Discharge Plan Problem Reviewed?: Yes Disposition: Home, Self Care Condition: Good Diet: Regular Activity Restrictions: No Restrictions Shower Restrictions: No Driving Restrictions: No Weight Bearing: Full Weight No Smoking: If you smoke, Please STOP! Call for help. Follow-up with: Shaneka Reyes CNM, ARNP [Provider Admit Priv/Credential] -
[2020-05-06] MEDS: DOCUSATE SODIUM 100 MG CAPSULE PO SCH (09:06)
--- NOTE | 2020-05-06 09:11 | DISCHARGE SUMMARY ---
Physician: PIERRE Wang DATE OF ADMISSION: 05/03/2020 DATE OF DISCHARGE: 05/06/2020 DIAGNOSES ON ADMISSION: 1. A 29-year-old 4, para 0-0-3-0, at 38.5 weeks gestation. 2. Premature rupture of membranes. 3. Group B Streptococcus negative. DIAGNOSES ON DISCHARGE: 1. A 29-year-old 4, para 1-0-3-1, status post spontaneous vaginal delivery on 05/04/2020. 2. Normal recovery. 3. . BRIEF HISTORY: She is a patient of [facility] who presented on 05/03/2020 with comp laints of spontaneous rupture of membranes. Epidural was placed per maternal request. Pitocin initi ated for labor augmentation. The patient progressed to spontaneously deliver a viable male infant on 05/04/2020 at 2348. Delivery complicated by 30-second shoulder dystocia. Apgars were 6 and 8 at 1 and 5 minutes respectively. EBL 300 mL. There was a second-degree perineal laceration, which was re paired with a 2-0 and a 3-0 Vicryl in standard fashion under sterile conditions. She has been doing well in her course. She is ambulating and tolerating a regular diet. She is urinating without difficulty, and her lochia is normal. Her pain is well-controlled with oral medications. She will be discharged home today on day #2 with instructions to continue h er vitamin while and to continue taking ibuprofen and Tylenol [id number] as needed for pain management. She intends to follow up with myself at [facility] in 1 week for routine visit or sooner if needed. She has been given precautions to call i f she has any worsening fevers, chills, abdominal pain, increased bleeding or foul-smelling vaginal l ochia. TD: 05/06/2020 09:00
--- NOTE | 2020-05-06 12:30 | Labor Flowsheet ---
Labor Flowsheet Datetime Report Generated by CPN: 05/06/2020 12:30 Datetime: 05/06/2020 07:27 VITAL SIGNS NBP Sys/Kori/Mean (mmHg): 107 : 68 : 77 Pulse: 89 Datetime: 05/06/2020 04:10 SpO2 (%): 99 Datetime: 05/05/2020 03:12 Respirations: 14 Temperature (C): 37.5 Temperature Route: Oral Datetime: 05/05/2020 03:10 Stage of : Recovery Datetime: 05/05/2020 01:40 Patient Care Comments: patient assisted up to void. pericare education completed. Beddin g changed/pp mattress cover on bed. Patient ambulated independently to bed. Datetime: 05/05/2020 01:10 Membranes Ruptured Date/Time: 05/03/2020 19:00 Membranes Rupture Method: Spontaneous Amniotic Fluid Color: Clear Amniotic Fluid Amount: Moderate Amniotic Fluid Odor: Normal Datetime: 05/04/2020 23:58 Medication Comments: IM methergine Datetime: 05/04/2020 23:48 UTERINE ACTIVITY Monitor Mode: External Contraction Comments: patient continues to push to delivery ASSESSMENT A Monitor Mode: External US FHR Baseline Rate : indeterminate baseline FHT dopple 70-190 Variability: Marked >25 bpm Accelerations: 15X15 Decelerations: Variable; Prolonged Category: Category II Datetime: 05/04/2020 23:40 Frequency (min): 1.5-2 Pattern: Normal: <= 5 Contractions in 10 Minutes Resting Tone (Palpate): Relaxed FHR Baseline Changes: Tachycardia Datetime: 05/04/2020 23:30 Comments: intermittent trace at times. CNM remains at perineum pushing with patient. Datetime: 05/04/2020 23:15 LaborFlag: Labor Datetime: 05/04/2020 22:53 Station: 1 Vaginal Exam Comments: CNM remains at perineum and pushes with patient Datetime: 05/04/2020 22:33 STAGE 2 Pushing: Urge to Push Datetime: 05/04/2020 22:30 Pushing Progress: Descent with Pushing Datetime: 05/04/2020 22:00 Duration (sec): 60-80 Resting Tone IUP (mmHg): 20 Intensity IUP (mmHg): 20-40 [place] Units (mmHg): 140 Datetime: 05/04/2020 21:59 VAGINAL EXAM Dilatation (cm): 10.0 Exam by: CNM Pushing Position: Pushing Lithotomy Datetime: 05/04/2020 21:50 MEDICATIONS Pitocin (milliunits): Increased to @ 6 Datetime: 05/04/2020 21:33 Monitor Interventions for FHR: Ultrasound Adjusted Datetime: 05/04/2020 20:45 Quality: Moderate Datetime: 05/04/2020 20:15 Pain Assessment Comments: patient states, I only felt pressure with that last contraction Datetime: 05/04/2020 20:03 Anesthesia Comments: test dose Datetime: 05/04/2020 19:33 Pain Type: Contraction Datetime: 05/04/2020 19:26 Antiemetics/Antacids: Zofran (mg) @ 4 Datetime: 05/04/2020 19:06 Communication Comments: Report Given to , RNC Datetime: 05/04/2020 18:56 Effacement (%): 80 Provider Reviewed Strip: Yes COMMUNICATION Communication: Provider at Bedside Datetime: 05/04/2020 18:48 Patient Position/Activity: Right Lateral Datetime: 05/04/2020 17:50 Notification Reason: Status Update; Status; Uterine Activity Datetime: 05/04/2020 14:02 Pain Presence: Intermittent Pain Location: Abdomen Pain Coping: Talking Through Contractions Comfort Measures: Breathing/Relaxation Datetime: 05/04/2020 13:00 Oxygen Method: Room Air Datetime: 05/04/2020 12:30 Monitor Interventions for UA: IUPC Inserted Datetime: 05/04/2020 09:30 Provider Notified (Name): Lorena Medina, CNM Datetime: 05/04/2020 07:07 MATERNAL ASSESSMENT Level of Consciousness: Alert DTR's/Clonus: DTRs 1+ Headache: Denies Breath Sounds, Left: Clear and Equal Breath Sounds, Right: Clear and Equal Nausea/Vomiting: Denies RUQ Epigastric Pain: Denies Datetime: 05/04/2020 05:56 PATIENT CARE IV/Blood Work: New IV Bag Hung; IV Bag Number @ 3 Datetime: 05/04/2020 04:45 Pitocin Checklist: At Least 1 Acceleration of 15 bpm x 15 Seconds in 30 Minutes or Adequate Variabi lity; No More than 1 Late Deceleration Occurred in Past 30 Minutes; No More than 2 Variable Decelerat ions > 60 Seconds in Duration and decreasing >60 bpm in 30 minutes; No More than 5 Uterine Contractio ns in 10 Minutes for any 20 Minute Interval; Uterus Palpates Soft between Contractions Datetime: 05/04/2020 04:37 Vaginal Bleeding: None Cervix, Consistency: Soft Cervix, Position: Midposition Datetime: 05/04/2020 04:36 I/O Interventions: Fernandes Cath Inserted Datetime: 05/04/2020 04:20 Epidural Procedure: Loading Dose Datetime: 05/04/2020 04:00 ANESTHESIA Anesthesia Plans: Epidural Datetime: 05/04/2020 00:59 PAIN Pain Scale: 0
== END 2020-05-06 12:00 | disposition home or self-care (01) | DRG 807 ==
LOC: WFO 19:31 → FBP 19:33 → WFO 20:23 → FBP 20:24
PROVIDERS: ADMIT Advanced Practice Midwife; ATTEND Nurse Practitioner Obstetrics & Gynecology
PROC: 10E0XZZ Delivery of Products of Conception, External Approach (ICD-10-PCS; principal; 2020-05-04)
PROC: 0KQM0ZZ Repair Perineum Muscle, Open Approach (ICD-10-PCS; 2020-05-04)
DX: O42.02 Full-term premature rupture of membranes, onset of labor within 24 hours of rupture (principal); Z37.0 Single live birth; O76 Abnormality in fetal heart rate and rhythm complicating labor and delivery; O66.0 Obstructed labor due to shoulder dystocia; O69.1XX0 Labor and delivery complicated by cord around neck, with compression, not applicable or unspecified; O70.1 Second degree perineal laceration during delivery; Z3A.38 38 weeks gestation of pregnancy; Z87.59 Personal history of other complications of pregnancy, childbirth and the puerperium; Z90.79 Acquired absence of other genital organ(s); Z20.822 Contact with and (suspected) exposure to COVID-19
CPT/HCPCS: 36415; 84112; 85025; 86850; 86900; 86901; 87635; 99212; A9270; J2210; J7120

== ENCOUNTER 2021-05-08 08:58 | Emergency (ER) | payer OTHER ==
--- NOTE | 2021-05-08 09:25 | ED Physician Documentation ---
PD HPI ALTERED MENTAL STATUS - Stated complaint Stated Complaint: CONFUSION - Chief complaint Chief Complaint: Neuro - History obtained from History obtained from: Patient - History of Present Illness Timing - onset: How many hours ago (1), Today Timing - details: Abrupt onset ( says patient seemed okay this morning and then he left for work. Pt took child to daycare and then went to work. At work, her coworkers noted her to be seeming confused and sleepy.) Associated symptoms: No: Fever, Headache, Dyspnea, Cough, NVD Contributing factors: New medication (had mild congestion/cough the past couple of days, so took some MUcinex. No DM containing cough meds.). 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 Had kids at home. youngest child is 1 year old. NO history of post depression, per /pt.), Ambulatory Similar symptoms before: No diagnosis ( says there were 2 other episodes recently: after she got dental work with local lidocaine (nor oral meds) and after getting her COVID Vaccine booster few weeks ago. 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 Musculoskeletal: None - Past Surgical History /STUDENT LOAN COUNSELOR: Dilation and currettage - Present Medications Home Medications: Ambulatory Orders Medication Instructions Recorded Confirmed No Known Home Medications 09/17/18 09/17/18 - Allergies Allergies/Adverse Reactions: Allergies Allergy/AdvReac Type Severity Reaction Status Date / Time No Known Drug Allergies Allergy Verified 05/08/21 09:28 - Social History Does the pt smoke?: No Smoking Status: Never smoker Does the pt drink ETOH?: Yes Does the pt have substance abuse?: No - Immunizations Immunizations are current?: Yes - POLST Patient has POLST: No PD ED PE NORMAL - Vitals Vital signs reviewed: Yes - General General: Well developed/nourished. No: Alert and oriented X 3 (drowsy, sleepy, and seems dazed look at times. Does answer questions sluggishly.) - HEENT HEENT: Atraumatic, Moist mucous membranes, Pharynx benign - Neck Neck: Supple, no meningeal sign, No adenopathy - Cardiac Cardiac: RRR (tachycardic but regular. ), No murmur - Respiratory Respiratory: Clear bilaterally - Abdomen Abdomen: Soft, Non tender - Derm Derm: Normal color, Warm and dry - Extremities Extremities: No tenderness to palpate, Normal ROM s pain, No edema, No calf tenderness / cord - Neuro Eye Opening: To Voice Motor: Obeys Commands Verbal: Confused GCS Score: 13 - Psych Psych: Normal mood Results - Vitals Vitals: Vital Signs - 24 hr 05/08/21 05/08/21 05/08/21 09:01 11:11 11:59 Temperature 36.5 C Heart Rate 136 H 121 H 133 H Respiratory 15 21 17 Rate Blood Pressure 140/76 H 141/87 H 120/79 O2 Saturation 99 100 99 Oxygen O2 Source Room air - Labs Labs: Laboratory Tests 05/08/21 05/08/21 05/08/21 09:49 09:49 09:49 WBC 5.4 RBC 4.15 L Hgb 13.1 Hct 40.2 MCV 96.9 MCH 31.6 H MCHC 32.6 RDW 13.0 Plt Count 306 MPV 9.8 Neut # (Auto) 3.8 Lymph # (Auto) 1.2 L [place] # (Auto) 0.4 Eos # (Auto) 0.0 Baso # (Auto) 0.1 Absolute Nucleated RBC 0.00 Nucleated RBC % 0.0 ESR 11 Sodium 137 Potassium 3.7 Chloride 101 Carbon Dioxide 23 Anion Gap 13.0 BUN 11 Creatinine 0.6 Estimated GFR (MDRD) 118 Glucose 90 Calcium 8.8 Total Bilirubin 0.8 AST 25 ALT 23 Alkaline Phosphatase 56 Total Protein 8.0 Albumin 4.3 Globulin 3.7 Albumin/Globulin Ratio 1.2 Lipase 32 TSH Urine HCG, Qual Urine Opiates Screen Ur Oxycodone Screen Urine Methadone Screen Ur Propoxyphene Screen Ur Barbiturates Screen Ur Tricyclics Screen Ur Phencyclidine Scrn Ur Amphetamine Screen U Methamphetamines Scrn U Benzodiazepines Scrn Urine Cocaine Screen U Cannabinoids Screen Ethyl Alcohol 19.1 05/08/21 05/08/21 09:49 10:39 WBC RBC Hgb Hct MCV MCH MCHC RDW Plt Count MPV Neut # (Auto) Lymph # (Auto) [place] # (Auto) Eos # (Auto) Baso # (Auto) Absolute Nucleated RBC Nucleated RBC % ESR Sodium Potassium Chloride Carbon Dioxide Anion Gap BUN Creatinine Estimated GFR (MDRD) Glucose Calcium Total Bilirubin AST ALT Alkaline Phosphatase Total Protein Albumin Globulin Albumin/Globulin Ratio Lipase TSH 1.95 Urine HCG, Qual NEGATIVE Urine Opiates Screen POSITIVE H Ur Oxycodone Screen NEGATIVE Urine Methadone Screen NEGATIVE Ur Propoxyphene Screen NEGATIVE Ur Barbiturates Screen NEGATIVE Ur Tricyclics Screen NEGATIVE Ur Phencyclidine Scrn POSITIVE H Ur Amphetamine Screen NEGATIVE U Methamphetamines Scrn NEGATIVE U Benzodiazepines Scrn NEGATIVE Urine Cocaine Screen NEGATIVE U Cannabinoids Screen NEGATIVE Ethyl Alcohol - Rads (name of study) head CT Radiology: Prelim report reviewed (no acute process), See rad report PD MEDICAL DECISION MAKING - ED course Complexity details: reviewed results (labs and head CT okay. UTOx showing phencyclin, which is likely the guiafenisin (Mucinex) that would cause that cross reaction. There are other cross-reactants for opioids on UTox, but consider pain med ingestion, as that could cause the drowsy/clumsy state. low ETOH On blood.), re-evaluated patient (she is much more alert and smiling/conversant. Denies other meds than her OCPs and the MUcinex. ), considered differential (seems sleepy. Presume more toxic/metabolic, but can get head cT as well. ), d/w patient ED course: her utox likely represents the mucinex for the phencyclin. there are actually reasonable number of meds to cause false positive for opioids, so not clear if that is true result. Her etoh was minimal at 17, and either small amount, or residual from last night, though reportedly not drinking last night. SOme cough meds have alcohol base, so could be small SIERRA from larger amount of cough med, though pt says did not take cough med/DM, but only the guiafenesin. Presume med related symptoms. Tachycardia would also correlate with such as DM or med related. Departure - Departure Disposition: 01 Home, Self Care Clinical Impression: Altered mental status Qualifiers: Altered mental status type: stupor Qualified Code(s): R40.1 - Stupor Condition: Stable Record reviewed to determine appropriate education?: Yes Instructions: ED Altered Loc Follow-Up: [facility] [Provider Group] Comments: Stay well-hydrated. Your head CT scan as well as your basic blood tests are normal without any acute abnormality. There was a minimal amount of alcohol in your system. Your urine test showed positive for couple of things which likely were a cross reaction from the Mucinex (guaifenesin). I would not take that for now. Follow-up with your primary care if recurring episodes. Discharge Date/Time: 05/08/21 12:05
[2021-05-08] MEDS ORDERED: SODIUM CHLORIDE 0.9% 1,000 ML IV STA (09:40)
[2021-05-08 09:58] LABS: BASOPHILS # (AUTO) 0.1 10^3/uL (0.0-0.1); BASOPHILS % (AUTO) 0.9 %; EOSINOPHILS % (AUTO) 0.2 %; HCT - HEMATOCRIT 40.2 % (37.0-47.0); HGB - HEMOGLOBIN 13.1 g/dL (12.0-16.0); LYMPHOCYTES # (AUTO) 1.2 10^3/uL (1.5-3.5); LYMPHOCYTES % (AUTO) 21.2 %; MEAN CORPUSCULAR HEMOGLOBIN 31.6 pg (27.0-31.0); MEAN CORPUSCULAR HGB CONC 32.6 g/dL (32.0-36.0); MEAN CORPUSCULAR VOLUME 96.9 fL (81.0-99.0); MEAN PLATELET VOLUME 9.8 fL (7.9-10.8); MONOCYTES # (AUTO) 0.4 10^3/uL (0.0-1.0); MONOCYTES % (AUTO) 7.7 %; NEUTROPHILS # (AUTO) 3.8 10^3/uL (1.5-6.6); NEUTROPHILS % (AUTO) 69.8 %; PLT - PLATELET COUNT 306 10^3/uL (130-450); RED BLOOD COUNT 4.15 10^6/uL (4.20-5.40); WHITE BLOOD COUNT 5.4 x10^3/uL (4.8-10.8)
--- NOTE | 2021-05-08 10:19 | CT Report ---
PROCEDURE: HEAD WO INDICATIONS: altered mentation this morning TECHNIQUE: Noncontrast 4.5 mm thick angled axial sections acquired from the foramen magnum to the vertex. For r adiation dose reduction, the following was used: automated exposure control, adjustment of mA and/or kV according to patient size. COMPARISON: None. FINDINGS: Image quality: Excellent. CSF spaces: Basal cisterns are patent. No extra-axial fluid collections. Ventricles are normal in size and shape. Brain: No midline shift. No intracranial masses or hemorrhage. Edmond-white matter interface is norm al. Skull and face: Calvarium and visualized facial bones are intact, without suspicious lesions. Sinuses: Visualized sinuses and mastoids are clear. IMPRESSION: 1. No acute intracranial process. Reviewed by: Angela Ortiz MD on 05/08/2021 10:17 AM [facility] Approved by: Angela Ortiz MD on 05/08/2021 10:17 AM [facility] Station ID: [id number]
[2021-05-08 10:44] LABS: MUDS CUTOFF CONCENTRATIONS CUTOFF CONC BELOW:
[2021-05-08 10:48] LABS: HCG UR QUAL NEGATIVE
[2021-05-08 10:57] LABS: OPIATE SCREEN, URINE POSITIVE (NEGATIVE)
[2021-05-08 10:58] LABS: AMPHETAMINE SCREEN,URINE NEGATIVE (NEGATIVE); BARBITURATE SCREEN,UR NEGATIVE (NEGATIVE); BENZODIAZEPINES SCREEN, URINE NEGATIVE (NEGATIVE); COCAINE SCREEN URINE NEGATIVE (NEGATIVE); METHADONE SCREEN, URINE NEGATIVE (NEGATIVE); METHAMPHETAMINES SCREEN, URINE NEGATIVE (NEGATIVE); OXYCODONE SCREEN, URINE NEGATIVE (NEGATIVE); PROPOXYPHENE SCREEN, URINE NEGATIVE (NEGATIVE); THC CANNABINOID SCREEN, URINE NEGATIVE (NEGATIVE); TRICYCLIC ANTIDEPRESSANT,URINE NEGATIVE (NEGATIVE)
[2021-05-08 11:30] LABS: ALBUMIN 4.3 g/dL (3.2-5.5); ALBUMIN/GLOBULIN RATIO 1.2 (1.0-2.2); BILIRUBIN,TOTAL 0.8 mg/dL (0.2-1.0); CALCIUM 8.8 mg/dL (8.5-10.3); CREATININE 0.6 mg/dL (0.4-1.0); ETOH - ETHANOL 19.1 mg/dL; POTASSIUM 3.7 mmol/L (3.5-5.0)
[2021-05-08 11:59] VITALS: BP 120/79
== END 2021-05-08 12:05 | disposition home or self-care (01) ==
LOC: ED 08:58
DX: R40.1 Stupor (principal)
CPT/HCPCS: 36415; 80053; 80306; 80320; 81025; 83690; 84443; 85025; 85651; 93005; 96360; 99282

== ENCOUNTER 2022-05-14 12:18 | Emergency (ER) | payer OTHER ==
--- NOTE | 2022-05-14 12:43 | ED Physician Documentation ---
PD HPI SKIN - Stated complaint Stated Complaint: LUMP ON BACKSIDE - Chief complaint Chief Complaint: Wound - History obtained from History obtained from: Patient - History of Present Illness Timing - onset: How many days ago (5) Timing - duration: Days (5) Timing - details: Gradual onset, Still present Location: Other (right perirectal area local pain and swelling with slight drainage developed over the past 4-5 days. Seen at [facility] 3 days ago and Rx Flagyl for abscess. No I&D or such. It has gotten biggger and more painful. Seen in clinic again today and referred to ER for eval. 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 Musculoskeletal: None - Past Surgical History /RETAIL SERVICES PROFESSIONAL: Dilation and currettage - Present Medications Home Medications: Ambulatory Orders Medication Instructions Recorded Confirmed HYDROcod/ACETAM 5/325 [[place] 5/325] 1 ea PO Q6H PRN #14 tablet 05/14/22 Ibuprofen [Motrin] 600 mg PO TID PRN #20 tab 05/14/22 Sulfamethox/Trimeth 800/160 1 each PO BID #14 tablet 05/14/22 [Bactrim Ds 800/160] - Allergies Allergies/Adverse Reactions: Allergies Allergy/AdvReac Type Severity Reaction Status Date / Time No Known Drug Allergies Allergy Verified 05/14/22 12:26 - Social History Does the pt smoke?: No Smoking Status: Never smoker Does the pt drink ETOH?: Yes Does the pt have substance abuse?: No - Immunizations Immunizations are current?: Yes - POLST Patient has POLST: No PD ED PE NORMAL - Vitals Vital signs reviewed: Yes - General General: Alert and oriented X 3, No acute distress, Well developed/nourished - Rectal Rectal: Other (The patient has a localized area of swelling raised above the contour of the normal skin associated with some redness tenderness and fluctuance in the area. This is to the right of the rectal opening in the medial gluteal area. It is not contiguous with the anal sphincter. ) - Back Back: No CVA TTP, No spinal TTP - Derm Derm: Normal color, Warm and dry Results - Vitals Vitals: Vital Signs - 24 hr 05/14/22 05/14/22 05/14/22 12:22 12:35 14:26 Temperature 37.3 C Heart Rate 133 H 129 H 110 H Respiratory 16 23 14 Rate Blood Pressure 135/78 H 113/65 O2 Saturation 100 100 100 Oxygen O2 Source Room air Procedures - Abscess I&D (location) perirectal Preparation: Lidocaine 1%, LET Incision: Incised with scalpel, Purulent drainage, Irrigated Other: Pt tolerated well, Dressing applied, Antibiotic prescribed PD Medical Decision Making - ED course Complexity details: considered differential, d/w patient ED course: The patient has had developing perirectal abscess treated with oral metronidazole for the past 3 days but worsening symptoms. Was seen in the clinic at the [facility] without any incision and drainage. Referred to the ER, not sure why they could not do the in decision. We are happy to see her. The patient had some let applied to the abscess area. I did appears and feels very close to the surface and is protruding and fluctuant. The incision and drainage produced a fair amount of purulence, approximately 10 mL. The patient is feeling improved. I would supplement the metronidazole or replace it with Bactrim instead as I think this would provide better E. coli and also potential staph coverage. Departure - Departure Disposition: 01 Home, Self Care Clinical Impression: Perirectal abscess Condition: Stable Record reviewed to determine appropriate education?: Yes Instructions: ED Abscess IandD Follow-Up: [facility] [Provider Group] Prescriptions: Sulfamethox/Trimeth 800/160 [Bactrim Ds 800/160] 1 each PO BID #14 tablet Ibuprofen [Motrin] 600 mg PO TID PRN #20 tab PRN Reason: Pain HYDROcod/ACETAM 5/325 [[place] 5/325] 1 ea PO Q6H PRN #14 tablet PRN Reason: Pain Comments: With incision of the abscess, there was a fair amount of pus that came out and it feels decompressed. This should help quite a bit in the resolution and healing of this infection. We still want to promote drainage so I would suggest warm sitting baths and gentle massage around the area to express out any further buildup of purulence. The incision hole should remain open over the next several days and allow further drainage. It should heal up on its own after that. I would prefer Bactrim antibiotic over the current metronidazole. I wrote a prescription for that twice daily for the next week. You can either add it to your current antibiotic or replace it. The metronidazole does cover fecal bacteria better but does not cover staph as well. The Bactrim covers both. I would suggest some anti-inflammatory such as ibuprofen 3 times daily with food for the next several days to week. Add Tylenol every 4-6 hours if needed for pain or hydrocodone/acetaminophen if needed for worse pain. Off work for the next couple of days as you will not be comfortable sitting prolongedly. Recheck if not improving well over the next several days. The area of the abscess has created a hollow spot under the skin where the pressure and pus had been. This should heal in slowly with new granulation tissue under the skin and it will take 2 or 3 weeks to fill in but should get back to normal. I sent your prescriptions to this [facility] in [place]. I am prescribing a short course of narcotic pain medication for you. These are potentially dangerous and addictive medications that should be used carefully. These medications may constipate you. Take an [id number] stool softener such as docusate twice daily with plenty of water while taking these me dications. If you go 24 hours without a bowel movement, take [id number] MiraLAX, per package instructions. Do not drink or drive while taking these medications. If you received narcotic or sedating medications while in the emergency department do not drive for 24 hours. Store this medication in a safe, secure place and out of reach of children. It is a violation of federal law to give or sell this medication to another person or to use in a manner other than prescribed. The ED will not refill narcotic prescriptions, including prescriptions lost or stolen. You can dispose of unwanted medications at the [facility]'s office or at several pharmacies such as [facility]. Forms: Activity restrictions Discharge Date/Time: 05/14/22 14:27
[2022-05-14] MEDS ORDERED: KETOROLAC 30 MG/ML VIAL IM STA (13:04)
[2022-05-14] MEDS ORDERED: LIDOCAINE-EPINEPH-TETRACAINE 3 ML SYRINGE TOP STA (13:04)
[2022-05-14] MEDS ORDERED: ACETAMINOPHEN 325 MG TABLET PO STA (13:04)
[2022-05-14] MEDS ORDERED: SULFAMETH/TRIMETH DS 800/160 MG TABLET PO STA (13:05)
[2022-05-14 14:26] VITALS: BP 113/65
== END 2022-05-14 14:27 | disposition home or self-care (01) ==
LOC: ED 12:18
DX: K61.1 Rectal abscess (principal)
CPT/HCPCS: 46040; 96372; 99283; A9270

== ENCOUNTER 2022-06-09 15:10 | Outpatient (CLI) | payer OTHER ==
[2022-06-09 15:23] LABS: BASOPHILS # (AUTO) 0.1 10^3/uL (0.0-0.1); BASOPHILS % (AUTO) 0.9 %; EOSINOPHILS # (AUTO) 0.1 10^3/uL (0.0-0.7); EOSINOPHILS % (AUTO) 1.1 %; HCT - HEMATOCRIT 38.5 % (37.0-47.0); HGB - HEMOGLOBIN 12.4 g/dL (12.0-16.0); LYMPHOCYTES # (AUTO) 1.5 10^3/uL (1.5-3.5); LYMPHOCYTES % (AUTO) 22.3 %; MEAN CORPUSCULAR HEMOGLOBIN 30.3 pg (27.0-31.0); MEAN CORPUSCULAR HGB CONC 32.2 g/dL (32.0-36.0); MEAN CORPUSCULAR VOLUME 94.1 fL (81.0-99.0); MEAN PLATELET VOLUME 9.2 fL (7.9-10.8); MONOCYTES # (AUTO) 0.6 10^3/uL (0.0-1.0); MONOCYTES % (AUTO) 8.5 %; NEUTROPHILS # (AUTO) 4.4 10^3/uL (1.5-6.6); NEUTROPHILS % (AUTO) 66.7 %; PLT - PLATELET COUNT 231 10^3/uL (130-450); RED BLOOD COUNT 4.09 10^6/uL (4.20-5.40); RED CELL DISTRIBUTION WIDTH 13.1 % (12.0-15.0); WHITE BLOOD COUNT 6.6 x10^3/uL (4.8-10.8)
[2022-06-10 05:10] LABS: HBsAG SCREEN Negative (Negative)
[2022-06-10 06:10] LABS: RPR Non Reactive (Non Reactive)
[2022-06-10 12:09] LABS: VARICELLA-ZOSTER AB IGG 1660 index (Immune >165)
[2022-06-11 01:08] LABS: HCV AB Non Reactive (Non Reactive); HIV SCREEN 4TH GENERATION Non Reactive (Non Reactive)
== END 2022-06-09 15:11 | disposition home or self-care (01) ==
LOC: LAB 15:10
PROVIDERS: ATTEND Nurse Practitioner
DX: O99.619 Diseases of the digestive system complicating pregnancy, unspecified trimester (principal); K61.2 Anorectal abscess
CPT/HCPCS: 36415; 85025; 86592; 86762; 86787; 86803; 86850; 86900; 86901; 87070; 87205; 87340; 87389

== ENCOUNTER 2022-06-29 17:25 | Outpatient (CLI) | payer OTHER ==
--- NOTE | 2022-06-30 10:31 | Ultrasound Report ---
PROCEDURE: OB First Trimester INDICATIONS: SUPERVISION OF OUTSIDE/PRIOR DATING DATA: Last menstrual period (LMP): 04/01/2022. LMP-based estimated date of delivery (LANIE): 01/06/2023. First dating scan (date and location): Today's exam. Estimated date of delivery (LANIE) from first dating scan: 01/11/2023. The below data below was generated using the ultrasound LANIE of 01/04/2023 TECHNIQUE: Real-time scanning was performed of the fetus and maternal pelvic organs, with image documentation. COMPARISON: None FINDINGS: Embryo: Single living intrauterine . pole measures 5.3 cm, corresponding to 12 weeks 0 days. Heart rate: 164 bpm. Measurement variability in dating: +/- 4 weeks by LMP, +/- 7 days by mean sac diameter (use before 6 weeks gestation if crown-rump length not able to be measured), +/- 5 days by crown-rump length (6-12 weeks gestation). Maternal organs: Ovaries are within normal limits. IMPRESSION: Single living intrauterine at 12 weeks 0 days, LANIE of 01/11/2023. This there is concordant with clinical dating. Reviewed by: Shankar Craig on 06/30/2022 10:29 AM PDT Approved by: Shankar Craig on 06/30/2022 10:29 AM PDT Station ID: [id number]
== END 2022-06-29 17:26 | disposition home or self-care (01) ==
LOC: DI 17:25
PROVIDERS: ATTEND Nurse Practitioner
DX: Z34.81 Encounter for supervision of other normal pregnancy, first trimester (principal)

== ENCOUNTER 2022-07-03 08:00 | Outpatient (CLI) | payer OTHER ==
[2022-07-04 00:49] LABS: CHLAMYDIA TRACHOMATIS DNA NEGATIVE (NEGATIVE); NEISSERIA GONORRHOEAE DNA NEGATIVE (NEGATIVE); TRICHOMONAS VAGINALIS DNA NEGATIVE (NEGATIVE)
== END 2022-07-03 23:59 | disposition home or self-care (01) ==
LOC: LAB.WC 08:00
PROVIDERS: ATTEND Nurse Practitioner
DX: Z11.3 Encounter for screening for infections with a predominantly sexual mode of transmission (principal)
CPT/HCPCS: 87491; 87591; 87661

== ENCOUNTER 2022-08-20 13:15 | Outpatient (CLI) | payer OTHER ==
--- NOTE | 2022-08-20 16:24 | Ultrasound Report ---
PROCEDURE: OB Detailed Eval INDICATIONS: SUPERVISION OF OUTSIDE/PRIOR DATING DATA: Last menstrual period (LMP): 04/01/2022. LMP-based estimated date of delivery (LANIE): 01/06/2023. First dating scan (date and location): 06/29/2022. Estimated date of delivery (LANIE) from first dating scan: 01/11/2023. The below data below was generated using the ultrasound LANIE of 01/11/2023 TECHNIQUE: Real-time scanning was performed of the fetus, with image documentation and biometric measurements. COMPARISON: OB ultrasound 06/29/2022. FINDINGS: General: A single living intrauterine gestation is present. Presentation: Variable Placenta: Placental position is posterior, without previa. Amniotic fluid index: 12.0 cm, within normal limits for gestational age. Largest pocket 3.3 cm heart rate: 155 beats per minute. Maternal cervical canal: 4.3 cm long; normal length is 2.5 cm or more. biometrics: Biparietal diameter: 4.3 cm, 19 weeks 0 days Head circumference: 16.4 cm, 19 weeks 1 day Abdominal circumference: 15.3 cm, 20 weeks 3 days Femur length: 2.9 cm, 18 weeks 6 days Estimated gestational age from initial scan: 19 weeks 3 days Composite gestational age from present scan: 19 weeks 3 days Estimated weight and percentile: 304 g, 57th percentile Measurement variability in biometric dating: +/- 10 days from 12-20 weeks gestation, +/- 2 weeks from 20-30 weeks gestation, +/- 3 weeks at 30 weeks gestation or later. Anatomic survey: Neuro: Ventricles are normal at less than 10 mm. Cisterna magna is normal at 3-11 mm. Cerebellum i s normal in size and morphology. Nuchal skin fold: Normal at less than 6 mm between 14 and 20 weeks gestational age. Face: Nose and lips, facial profile are normal. Spine: No evidence for spina bifida. Heart: 4-chambered heart is present, with normal ventricular outflow tracts. Diaphragm: Diaphragm is intact. Stomach: Left-sided stomach is present. Kidneys: No hydronephrosis. Normal is less than 5 mm in 2nd trimester, less than 7 mm in 3rd trimester. Cord: 3 vessel cord has orthotopic insertion. Bladder: Normal in size. Extremities: All 4 extremities are visualized. IMPRESSION: 1. Wilson living intrauterine at 19 weeks 3 days based on today's ultrasound. Fetus is i n the 57th percentile for weight. 2. Normal placenta and amniotic fluid. 3. Normal and complete anatomic survey. Reviewed by: Brent Nair MD on 08/20/2022 4:23 PM PDT Approved by: Brent Nair MD on 08/20/2022 4:23 PM PDT Station ID: [id number]
== END 2022-08-20 13:16 | disposition home or self-care (01) ==
LOC: DI 13:15
PROVIDERS: ATTEND Nurse Practitioner
DX: Z34.82 Encounter for supervision of other normal pregnancy, second trimester (principal)

== ENCOUNTER 2022-08-27 07:34 | Outpatient (CLI) | payer OTHER ==
[2022-08-29 19:07] LABS: AFP VALUE 112.8 ng/mL (.); DIA MOM 1.11 (.); DIA VALUE 216.67 pg/mL (.); DSR (BY AGE) 1 IN 596 (.); DSR (SECOND TRIMESTER) 1 IN 9840 (.); GEST. AGE ON COLLECTION DATE 21.1 WEEKS (.); HCG MOM 2.06 (.); HCG VALUE 47008 mIU/mL (.); INSULIN DEP DIABETES No (.); MATERNAL AGE AT EDD 31.2 yr (.); MULTIPLE GESTATION No (.); OPEN SPINA BIFIDA RISK 1 IN 1278 (.); RACE Caucasian (.); RESULTS Report (.); TEST RESULTS *Screen Negative* (.); TRISOMY 18 RISK Not increased (.); UE3 MOM 0.86 (.); UE3 VALUE 2.34 ng/mL (.); WEIGHT 168 lbs (.)
== END 2022-08-27 07:35 | disposition home or self-care (01) ==
LOC: LAB 07:34
PROVIDERS: ATTEND Nurse Practitioner
DX: Z36.8A Encounter for antenatal screening for other genetic defects (principal)
CPT/HCPCS: 36415; 81511

== ENCOUNTER 2022-09-20 19:46 | Emergency (ER) | payer OTHER ==
--- NOTE | 2022-09-20 20:11 | ED Physician Documentation ---
History of Present Illness - Stated complaint Stated Complaint: PREG/FEMALE - Chief complaint Chief Complaint: Wound - Additonal information Additional information: 31-year-old female who is 24 weeks presents to the emergency department for evaluation of what she believes to be a new perirectal abscess. 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 She has active continuous drainage from that fistula. She was seen by surgery at [place] and the recommendation was to delay surgery of the right perirectal fistula until after she delivers. 2 days ago she began having tenderness warmth and a hard induration on the left side of her rectum gluteal region. No drainage from here. Patient has movement. She has no loss of vaginal fluids. Review of Systems Constitutional: denies: Fever, Chills : reports: Now EGA, Other (Perirectal fistula and abscess) PD PAST MEDICAL HISTORY - Past Medical History Cardiovascular: None Respiratory: None Neuro: None Endocrine/Autoimmune: None GI: None INVESTIGATION DIVISION CAPTAIN: Ectopic : None Musculoskeletal: None - Past Surgical History /INVESTIGATION DIVISION CAPTAIN: Dilation and currettage - Present Medications Home Medications: Ambulatory Orders Medication Instructions Recorded Confirmed Pnv No.95/Ferrous Fum/Folic AC 1 tab PO DAILY 06/25/22 06/25/22 [ Caplet] Amox/Clav 875/125 [Augmentin] 1 each PO Q12H #20 tablet 09/20/22 - Allergies Allergies/Adverse Reactions: Allergies Allergy/AdvReac Type Severity Reaction Status Date / Time No Known Drug Allergies Allergy Verified 09/20/22 19:52 - Social History Does the pt smoke?: No Smoking Status: Never smoker Does the pt drink ETOH?: Yes Does the pt have substance abuse?: No - Immunizations Immunizations are current?: Yes - POLST Patient has POLST: No PD ED PE EXPANDED - General General: Alert, No acute distress - Abdomen Abdomen: Other (Palpable gravid uterus.) - Rectal Rectal: Other (Actively draining right perirectal fistula with large amount of mucopurulent drainage. Left perirectal rim and gluteus has fair amount of induration and erythema without obvious fluctuance or drainage noted) Results - Vitals Vitals: Vital Signs - 24 hr 09/20/22 19:48 Temperature 37.1 C Heart Rate 125 H Respiratory 16 Rate Blood Pressure 129/74 O2 Saturation 100 Oxygen O2 Source Room air Procedures - Abscess I&D (location) left perirectal/gluteal Preparation: Betadine Incision: Incised with scalpel, Loculations broken, Irrigated, Packed, Other (Clear orderliness viscous almost jellylike fluid drained moderate amount) Other: Pt tolerated well, Antibiotic prescribed PD Medical Decision Making - ED course Complexity details: reviewed results, d/w patient ED course: 31-year-old female presents emergency department for evaluation of what she b elieves to be a left perirectal abscess. About 2 days ago she began having firmness and tenderness in the left perirectal and gluteal region. She has been dealing with a right-sided perirectal fistula since June of this year. Patient is currently 24 weeks and has been seeing by colorectal surgery at [facility]. The plan is to address the fistula once the patient delivers this . heart tones were obtained at the bedside and are normal. Patient continues to have movement. No vaginal bleeding or loss of fluids. At the bedside there was an area of firm red tenderness that extended from the perirectal region into the gluteus. Because of her it could not be imaged. However we did do an incision and drainage at the bedside and a moderate amount of clear, odorless and jellylike fluid was drained. This is vastly different from the purulence draining from her perirectal abscess. We did consider the possibility of a communicating or horseshoe perirectal abscess but given this clear fluid I do not think this is a communicating lesion. In the interim however a small amount of packing has been placed as it seemed to tunnel about 1 to 2 inches in. Patient will be started on Augmentin. She is scheduled to see Dr. Chau this week in follow-up. I discussed the usual emergent return precautions for concerns or worsening symptoms. Departure - Departure Disposition: 01 Home, Self Care Clinical Impression: Abscess, perirectal Condition: Stable Record reviewed to determine appropriate education?: Yes Prescriptions: Amox/Clav 875/125 [Augmentin] 1 each PO Q12H #20 tablet Comments: As discussed at the bedside we did drain what appeared to be an abscess on your left perirectal region. However what drained was clear and almost viscous or jellylike fluid. I do not think that this is communicating with your right- sided fistula. However we will start you on some antibiotics Augmentin which has been sent to the [facility] in [place]. It is important to continue close follow-up with OB as already scheduled this week. In about 48 hours you can remove the packing from your rectal area if it falls out before then that is okay. Return to the ER if you find that you are having new or worsening symptoms despite this drainage or antibiotic initiation.
[2022-09-20 20:30] VITALS: BP 124/78
[2022-09-20] MEDS: lidocaine 1% 20 ML MDV SUBQ ONE (20:32)
[2022-09-20] MEDS: AMOX/CLAV 875 MG/125 MG TABLET PO STA (20:40)
== END 2022-09-20 20:44 | disposition home or self-care (01) ==
LOC: ED 19:46
DX: O26.892 Other specified pregnancy related conditions, second trimester (principal); Z3A.24 24 weeks gestation of pregnancy; K61.1 Rectal abscess
CPT/HCPCS: 46040; 99283; A9270

== ENCOUNTER 2022-10-05 07:13 | Outpatient (CLI) | payer OTHER ==
[2022-10-05 08:45] LABS: HGB - HEMOGLOBIN 10.1 g/dL (12.0-16.0); MEAN CORPUSCULAR HEMOGLOBIN 28.7 pg (27.0-31.0); MEAN CORPUSCULAR HGB CONC 31.6 g/dL (32.0-36.0); MEAN CORPUSCULAR VOLUME 90.9 fL (81.0-99.0); MEAN PLATELET VOLUME 9.8 fL (7.9-10.8); RED BLOOD COUNT 3.52 10^6/uL (4.20-5.40); WHITE BLOOD COUNT 7.3 x10^3/uL (4.8-10.8)
== END 2022-10-05 07:14 | disposition home or self-care (01) ==
LOC: LAB 07:13
PROVIDERS: ATTEND Obstetrics & Gynecology
DX: Z34.81 Encounter for supervision of other normal pregnancy, first trimester (principal)
CPT/HCPCS: 36415; 82950; 85027

== ENCOUNTER 2022-11-27 07:11 | Emergency (ER) | payer OTHER ==
[2022-11-27] MEDS ORDERED: LIDOCAINE-EPINEPH-TETRACAINE 3 ML SYRINGE TOP STA (07:26)
--- NOTE | 2022-11-27 07:37 | ED Physician Documentation ---
PD HPI WOUND RECHECK - Stated complaint Stated Complaint: LUMP NEAR RECTUM - Chief complaint Chief Complaint: Wound - Histroy obtained from History obtained from: Patient - Additional information Additional information: Patient is a 32-year-old female who is 34 weeks presenting for evaluation of an abscess in left glutea that she has noticed since yesterday. Patient has a history of a perirectal abscess/fistula and has seen colorectal surgery at [facility]. She was advised to delay surgery until she delivers. She states that this is not in the same location as her fistula. S he states that it is on the opposite side of a similar abscess that she developed 2 months ago at which time she was also seen our emergency department for an I&D. She is unsure why she has had these abscesses but states that she was told they would evaluate her for possible Crohn's disease once she delivers. Regards to her she denies having vaginal bleeding or discharge, abdominal pains. She is following with Dr. Chau. Reports good movement. Review of Systems Constitutional: denies: Fever Cardiac: denies: Chest pain / pressure Respiratory: denies: Dyspnea GI: denies: Abdominal Pain : denies: Vaginal bleeding PD PAST MEDICAL HISTORY - Past Medical History Cardiovascular: None Respiratory: None Neuro: None Endocrine/Autoimmune: None GI: None ASSURANCE ASSOCIATE: Ectopic : None Musculoskeletal: None - Past Surgical History /ASSURANCE ASSOCIATE: Dilation and currettage - Present Medications Home Medications: Ambulatory Orders Medication Instructions Recorded Confirmed Pnv No.95/Ferrous Fum/Folic AC 1 tab PO DAILY 06/25/22 11/27/22 [ Caplet] - Allergies Allergies/Adverse Reactions: Allergies Allergy/AdvReac Type Severity Reaction Status Date / Time No Known Drug Allergies Allergy Verified 11/27/22 07:19 - Social History Does the pt smoke?: No Smoking Status: Never smoker Does the pt drink ETOH?: Yes Does the pt have substance abuse?: No - Immunizations Immunizations are current?: Yes - POLST Patient has POLST: No PD ED PE NORMAL - General General: Alert and oriented X 3, No acute distress, Well developed/nourished - HEENT HEENT: Atraumatic - Respiratory Respiratory: No respiratory distress - Abdomen Abdomen: Other (Gravid uterus) - Rectal Rectal: Other (Localized area of swelling to the inner left gluteus, not contiguous with anal sphincter) - Derm Derm: Warm and dry Results - Vitals Vitals: Vital Signs - 24 hr 11/27/22 11/27/22 07:14 08:31 Temperature 37.2 C 37.0 C Heart Rate 105 H 96 Respiratory 15 14 Rate Blood Pressure 121/69 126/72 O2 Saturation 98 100 Oxygen O2 Source Room air Procedures - Abscess I&D (location) Left perianal Preparation: LET Incision: Incised with scalpel, Purulent drainage, Loculations broken Other: Pt tolerated well, Dressing applied PD Medical Decision Making - ED course ED course: Patient presenting for evaluation of abscess in the anal region. On exam this is in a different location than her known perirectal fistula. Patient consented to incision and drainage which was performed at the bedside with expression of copious amounts of purulence. As she is , heart tones were obtained which are within normal limits and she has no symptoms to suggest precipitous labor. Patient has upcoming appointment with OB next week. She is counseled on concerning symptoms to return for. Departure - Departure Disposition: 01 Home, Self Care Clinical Impression: Abscess of anal or rectal region Condition: Stable Instructions: ED Abscess IandD Follow-Up: Glenn Chau MD [Provider Admit Priv/Credential] - Comments: You have an abscess in the rectal region which was incised and drained. Please continue with sitz baths. Return to the emergency department with worsening symptoms such as increased swelling or pain. Forms: PCP List Discharge Date/Time: 11/27/22 08:34
[2022-11-27 08:37] VITALS: BP 126/72; O2SAT 100
== END 2022-11-27 08:34 | disposition home or self-care (01) ==
LOC: ED 07:11
DX: O99.713 Diseases of the skin and subcutaneous tissue complicating pregnancy, third trimester (principal); Z3A.34 34 weeks gestation of pregnancy
CPT/HCPCS: 46050

== ENCOUNTER 2022-12-17 08:00 | Outpatient (CLI) | payer OTHER | END 2022-12-17 23:58 | disposition home or self-care (01) | LOC: LAB.R 08:00 | PROVIDERS: ATTEND Nurse Practitioner | DX: Z36.85 Encounter for antenatal screening for Streptococcus B (principal) | CPT/HCPCS: 87797 ==

== ENCOUNTER 2022-12-30 14:22 | Inpatient (IN) | payer OTHER ==
[2022-12-30] MEDS ORDERED: miSOPROStoL 200 MCG TABLET BC PRN (15:50)
[2022-12-30] MEDS ORDERED: LABETALOL 20 MG/4 ML SYRINGE IVP PRN ×3 (15:50)
[2022-12-30] MEDS ORDERED: hydrALAZINE INJ 20 MG/ML VIAL IVP PRN ×2 (15:50)
[2022-12-30] MEDS ORDERED: TRANEXAMIC ACID IN NACL 1,000 MG/100 ML BAG IV PRN (15:50)
[2022-12-30] MEDS ORDERED: METHYLERGONOVINE 0.2 MG/ML VIAL IM PRN (15:50)
[2022-12-30] MEDS ORDERED: SODIUM CHLORIDE FLUSH 0.9% 10 ML SYRINGE IVP PRN ×2 (15:50)
[2022-12-30] MEDS ORDERED: miSOPROStoL 200 MCG TABLET PR PRN (15:50)
[2022-12-30] MEDS ORDERED: CARBOPROST TROMETHAMINE 250 MCG/ML AMP IM PRN (15:50)
[2022-12-30] MEDS ORDERED: ACETAMINOPHEN 325 MG TABLET PO PRN (15:50)
[2022-12-30] MEDS ORDERED: NIFEdipine 10 MG CAPSULE PO PRN (15:50)
[2022-12-30] MEDS ORDERED: fentaNYL 100 MCG/2 ML VIAL IVP PRN (15:50)
[2022-12-30] MEDS ORDERED: OXYTOCIN 10 UNIT/ML VIAL IM PRN (15:50)
[2022-12-30] MEDS ORDERED: ZOLPIDEM 5 MG TABLET PO PRN (15:50)
[2022-12-30] MEDS ORDERED: lidocaine 1% 20 ML MDV ID PRN (15:50)
[2022-12-30] MEDS ORDERED: ONDANSETRON ODT 4 MG TABLET TL PRN (15:50)
[2022-12-30] MEDS ORDERED: OXYTOCIN/SODIUM CHLORIDE 500 ML IV PRN (15:50)
[2022-12-30] MEDS ORDERED: TERBUTALINE 1 MG/ML VIAL SUBQ PRN (15:50)
[2022-12-30] MEDS ORDERED: SODIUM CHLORIDE FLUSH 0.9% 10 ML SYRINGE IVP SCH ×2 (16:00→17:00)
[2022-12-30] MEDS ORDERED: OXYTOCIN/SODIUM CHLORIDE 500 ML IV SCH (16:00)
[2022-12-30 16:10] LABS: BASOPHILS % (AUTO) 0.3 %; EOSINOPHILS # (AUTO) 0.1 10^3/uL (0.0-0.7); HCT - HEMATOCRIT 33.5 % (37.0-47.0); HGB - HEMOGLOBIN 10.4 g/dL (12.0-16.0); LYMPHOCYTES # (AUTO) 2.8 10^3/uL (1.5-3.5); LYMPHOCYTES % (AUTO) 31.8 %; MEAN CORPUSCULAR HEMOGLOBIN 25.6 pg (27.0-31.0); MEAN CORPUSCULAR VOLUME 82.5 fL (81.0-99.0); MEAN PLATELET VOLUME 11.3 fL (7.9-10.8); MONOCYTES # (AUTO) 0.7 10^3/uL (0.0-1.0); MONOCYTES % (AUTO) 8.1 %; NEUTROPHILS # (AUTO) 5.2 10^3/uL (1.5-6.6); PLT - PLATELET COUNT 209 10^3/uL (130-450); RED BLOOD COUNT 4.06 10^6/uL (4.20-5.40); RED CELL DISTRIBUTION WIDTH 15.6 % (12.0-15.0); WHITE BLOOD COUNT 8.9 x10^3/uL (4.8-10.8)
[2022-12-30] MEDS: miSOPROStoL 100 MCG TABLET BC SCH ×2 (16:29→20:29)
[2022-12-30] MEDS ORDERED: LACTATED RINGERS 1,000 ML ONE (16:35)
--- NOTE | 2022-12-30 20:11 | HISTORY & PHYSICAL EXAMINATION ---
Admit History - Visit Reason Visit Reason: Other (admitted for elective induction of labor. wishes pp sterilizaiton.) - : 5 Parity: 1 Ectopic: 2 : 1 Care: positive: [facility] Risk/History: positive: None Complications This : positive: None Smoking Status: Never smoker - Mother's Labs GBS: positive: Group B Step Negative - HPI Current EDU 01/06/23 Gestation 39 Weeks and 0 Days 5 Vital Signs Temperature 98.6 F 12/30/22 14:43 Heart Rate 113 H 12/30/22 14:43 Respiratory Rate 18 12/30/22 14:43 Blood Pressure 109/70 12/30/22 14:43 Temperature 98.6 F 12/30/22 14:43 Heart Rate 113 H 12/30/22 14:43 Respiratory Rate 18 12/30/22 14:43 Blood Pressure 109/70 12/30/22 14:43 O2 Saturation If not protocol: Oxygen Flow, liters/minute Meds/Allgy - Home Medications Home Medications: Ambulatory Orders Medication Instructions Recorded Confirmed Pnv No.95/Ferrous Fum/Folic AC 1 tab PO DAILY 06/25/22 11/27/22 [ Caplet] - Allergies Allergies/Adverse Reactions: Allergies Allergy/AdvReac Type Severity Reaction Status Date / Time No Known Drug Allergies Allergy Verified 11/27/22 07:19 Review of Systems - All Other Systems All Other Systems: reports: Other (denies headache. notes good movement. no n/v. no leaking of fluid or vaginal bleeding) Physical - Abdominal Exam Vital Signs: Temp Pulse Resp BP Pulse Ox O2 Flow Rate 98.6 F 113 H 18 109/70 12/30/22 14:43 12/30/22 14:43 12/30/22 14:43 12/30/22 14:43 Contraction Frequency (min/apart): none Contraction Intensity: positive: Other Uterine Resting Tone: positive: Soft - Monitoring Strip Review: positive: Category I - Presentation Presentation: positive: Vertex - Vaginal Exam Membranes: positive: Membranes intact Dilation (in cm): 2 Effacement (%): 80 Station: positive: -2 (lower uterine segment very well developed.) Plan for Labor - Plan For Labor I expect patient to be DC'd or transferred within 96 hours.: Yes Plan for Labor: admit for labor induction. consent reviewed and signed. start with miso. pitocin as needed. does want epidural.
[2022-12-31] MEDS: LACTATED RINGERS 1,000 ML IV SCH ×4 (00:15→14:38)
[2022-12-31] MEDS ORDERED: LACTATED RINGERS 500 ML IV ONE (00:15)
[2022-12-31] MEDS ORDERED: ROPIVACAINE 0.2% 200 MG/100 ML BAG EP ONE (00:40)
[2022-12-31] MEDS ORDERED: ROPIVACAINE 0.2% 200 MG/100 ML BAG EP PRN (01:08)
[2022-12-31] MEDS ORDERED: NALOXONE 0.4 MG/ML VIAL IVP PRN (01:08)
[2022-12-31] MEDS ORDERED: ePHEDrine 50 MG/ML VIAL IVP PRN (01:08)
--- NOTE | 2022-12-31 01:08 | ANESTHESIA ---
Pre-Anesthesia VS, & Labs - Diagnosis active labor - Procedure vaginal delivery Vital Signs: Temp Pulse Resp BP Pulse Ox O2 Flow Rate 37 C 113 H 18 109/70 12/30/22 14:43 12/30/22 14:43 12/30/22 14:43 12/30/22 14:43 Height: 5 ft 5 in Weight (kg): 89.358 kg Body Mass Index: 32.8 BMI Classification: Obese - NPO Last Fluid Intake: clear liquids - Is Patient ?: Yes - Lab Results Current Lab Results: Laboratory Tests 12/30/22 15:55: Blood Type O POSITIVE, Antibody Screen NEGATIVE 12/30/22 15:55: WBC 8.9, RBC 4.06 L, Hgb 10.4 L, Hct 33.5 L, MCV 82.5, MCH 25.6 L, MCHC 31.0 L, RDW 15.6 H, Plt Count 209, MPV 11.3 H, Neut # (Auto) 5.2, Lymph # (Auto) 2.8, Dolores # (Auto) 0.7, Eos # (Auto) 0.1, Baso # (Auto) 0.0, Absolute Nucleated RBC 0.00, Nucleated RBC % 0.0 Lab results reviewed: Yes Fish Bones: 12/30/22 15:55 Home Medications and Allergies Active Medications Acetaminophen (Acetaminophen 325 Mg Tablet) 650 mg PO Q4HR PRN PRN Reason: Pain 1 to 4, or Fever Carboprost Tromethamine (Carboprost Tromethamine 250 Mcg/Ml Amp) 250 mcg IM .ONCE PRN PRN Reason: Hemorrhage Fentanyl (Fentanyl 100 Mcg/2 Ml Vial) 50 mcg IVP Q1H PRN PRN Reason: Severe Pain (score 7-10) Hydralazine HCl (Hydralazine Inj 20 Mg/Ml Vial) 5 - 10 mg IVP Q20M PRN; Protoc ol PRN Reason: SBP> or= 160 OR DBP> or= 110 Hydralazine HCl (Hydralazine Inj 20 Mg/Ml Vial) 10 mg IVP .ONCE PRN; Protocol PRN Reason: SBP> or= 160 OR DBP> or= 110 Oxytocin/Sodium Chloride (Pitocin/Sodium Chloride) 500 mls @ 999 mls/hr IV PRN PRN; Protocol PRN Reason: POST- HEMORR PREVENTION Tranexamic Acid (Tranexamic 1,000 Mg/100ml-Nacl) 1,000 mg in 100 mls @ 600 mls/hr IV Q30M PRN PRN Reason: EBL >1200mL and within 3hr Oxytocin/Sodium Chloride (Pitocin/Sodium Chloride) 500 mls @ 1 mls/hr IV TITR CAITY; Protocol Labetalol HCl (Labetalol 20 Mg/4 Ml Syringe) 20 - 80 mg IVP Q10M PRN; Protocol PRN Reason: SBP> or= 160 OR DBP> or= 110 Labetalol HCl (Labetalol 20 Mg/4 Ml Syringe) 20 mg IVP .ONCE PRN; Protocol PRN Reason: SBP> or= 160 OR DBP> or= 110 Labetalol HCl (Labetalol 20 Mg/4 Ml Syringe) 20 - 40 mg IVP Q10M PRN; Protocol PRN Reason: SBP> or= 160 OR DBP> or= 110 Lidocaine HCl (Lidocaine 1% 20 Ml Mdv) 20 ml ID .ONCE PRN PRN Reason: PERINEAL REPAIR Stop: 01/02/23 15:50 Methylergonovine Maleate (Methylergonovine 0.2 Mg/Ml Vial) 0.2 mg IM .ONCE PRN PRN Reason: Hemorrhage Misoprostol (Misoprostol 200 Mcg Tablet) 600 mcg BC .ONCE PRN PRN Reason: Hemorrhage Misoprostol (Misoprostol 200 Mcg Tablet) 800 mcg GA .ONCE PRN PRN Reason: Hemorrhage Misoprostol (Misoprostol 100 Mcg Tablet) 25 mcg BC Q4H CAITY Stop: 12/31/22 12:01 Last Admin: 12/30/22 20:29 Dose: 25 mcg Nifedipine (Nifedipine 10 Mg Capsule) 10 - 20 mg PO Q20M PRN; Protocol PRN Reason: SBP> or= 160 OR DBP> or= 110 Ondansetron HCl (Ondansetron Odt 4 Mg Tablet) 4 mg TL Q6HR PRN PRN Reason: Nausea / Vomiting Oxytocin (Oxytocin 10 Unit/Ml Vial) 10 unit IM .ONCE PRN PRN Reason: Step One if no IV access. Sodium Chloride (Sodium Chloride Flush 0.9% 10 Ml Syringe) 10 ml IVP PRN PRN PRN Reason: NEEDED PER PROVIDER ORDERS Sodium Chloride (Sodium Chloride Flush 0.9% 10 Ml Syringe) 10 ml IVP Q8H CAITY Sodium Chloride (Sodium Chloride Flush 0.9% 10 Ml Syringe) 10 ml IVP PRN PRN PRN Reason: NEEDED PER PROVIDER ORDERS Sodium Chloride (Sodium Chloride Flush 0.9% 10 Ml Syringe) 10 ml IVP 0100,0900,1700 CAITY Terbutaline Sulfate (Terbutaline 1 Mg/Ml Vial) 0.25 mg SUBQ .ONCE PRN PRN Reason: Tachystole Zolpidem Tartrate (Zolpidem 5 Mg Tablet) 5 mg PO QPM PRN PRN Reason: Insomnia Pnv No.95/Ferrous Fum/Folic AC [ Caplet] 1 tab PO DAILY 06/25/22 Allergies/Adverse Reactions: Allergies Allergy/AdvReac Type Severity Reaction Status Date / Time No Known Drug Allergies Allergy Verified 11/27/22 07:19 Anes History & Medical History - Anesthetic History Anesthesia Complications: reports: No previous complications - Medical History Cardiovascular: reports: None Pulmonary: reports: None Gastrointestinal: reports: None Urinary: reports: None Neuro: reports: None Musculoskeletal: reports: None Endocrine/Autoimmune: reports: None Smoking Status: Never smoker Psychosocial: reports: No issues indicated - Surgical History Gynecologic: reports: Dilation and currettage, Other (ectopic with salpingectomy) - Obstetrical History : 5 Parity: 1 Events: reports: None Complications: reports: None Exam General: Alert, Oriented x3, Cooperative, No acute distress Dental: WNL Mouth Openin Fingerbreadth Neck Mobility: Normal Mallampati classification: II Thyromental Distance: 4-6 cm Mental/Cognitive Status: Alert/Oriented X3, Normal for patient Plan Anesthesia Type: Epidural Consent for Procedure(s) Verified and Reviewed: Yes Code Status: Attempt Resuscitation ASA classification: 2-Mild systemic disease Is this case an emergency?: No
--- NOTE | 2022-12-31 01:28 | PROVIDER PROGRESS NOTE ---
Labor Progress Note - Uterine Monitoring : q4-6 Contraction Intensity: positive: Moderate Uterine Resting Tone: positive: Soft - Monitoring Monitor Mode: positive: External ultrasound Heart Rate Baseline: 140 Heart Rate Variability: positive: Moderate (6-25 bmp) Accelerations: positive: Present, 15x15 Decelerations: positive: None Strip Review: positive: Category I - Vaginal Exam Dilation (in cm): 4 Effacement (%): 80 Station: -2 Cervical Position: Midposition - Labor Progress Note Labor Progress Note/Additional Text: Uncomfortable and received epidural. Will begin oxytocin augmentation per protocol.
[2022-12-31] MEDS ORDERED: OXYTOCIN/SODIUM CHLORIDE 500 ML IV SCH (01:50)
[2022-12-31] MEDS ORDERED: LACTATED RINGERS 1,000 ML IV PRN (05:00)
[2022-12-31] MEDS ORDERED: LACTATED RINGERS 1,000 ML ONE (05:17)
--- NOTE | 2022-12-31 10:29 | PROVIDER PROGRESS NOTE ---
Labor Progress Note - Uterine Monitoring Uterine Monitoring Mode: positive: External toco Contraction Frequency (min/apart): 2-4 Contraction Intensity: positive: Moderate to strong - Monitoring Monitor Mode: positive: External ultrasound Heart Rate Baseline: 150 Accelerations: positive: Present, 15x15 Decelerations: positive: None - Vaginal Exam Dilation (in cm): 5 Effacement (%): 75 Station: -2 - Labor Progress Note Labor Progress Note/Additional Text: Dicsussed plan with patient and AROM performed with moderate amount of clear fluid. Category 1 tracing. Oxytocin for induction. Anticipate .
[2022-12-31] MEDS ORDERED: ROPIVACAINE 0.2% PF 10 ML VIAL ONE (15:43)
[2022-12-31] MEDS ORDERED: SIMETHICONE CHEW 80 MG TABLET PO PRN (16:27)
[2022-12-31] MEDS ORDERED: DOCUSATE SODIUM 100 MG CAPSULE PO PRN (16:27)
[2022-12-31] MEDS ORDERED: LACTATED RINGERS 1,000 ML IV SCH (17:00)
--- NOTE | 2022-12-31 17:29 | DELIVERY NOTE ---
Delivery Note - Labor Labor: positive: Augmented by ARM, Augmented by oxytocin - Delivery Method Delivery Method: positive: Spontaneous vaginal delivery - Cervical Ripening Method Cervical Ripening Method: positive: Misoprostil - Presentation Presentation: positive: Vertex - Nuchal Cord Nuchal Cord: positive: None - Anesthetic Anesthetic Type: - Amniotic Fluid Description Amniotic Fluid Description: positive: Clear - Laceration Laceration: positive: 2nd degree - Suture Suture Type: positive: Vicryl Suture Size: positive: 3-0 - Delivery Outcome Delivery Outcome: positive: Livebirth - Daisy Daisy: positive: Placed in direct skin contact with mother, Bulb syringe sex: positive: Female - Cord Cord: positive: 3 vessels - Placenta Placenta: positive: Intact - Estimated Blood Loss Estimated Blood Loss (in cc): 350 - Post Delivery Events Post Delivery Events: positive: Shoulder dystocia - Delivery Comments (Free Text/Narrative) Delivery Comments (Free Text/Narrative): Preoperative Diagnoses 39 weeks gestation Induction of labor Postoperative Diagnoses Same Status post spontaneous vaginal delivery Delivery of live paredes Shoulder dystocia Patient was admitted at 39 weeks gestation for induction of labor. She received misoprostol followed by oxytocin. She was not making sufficient change to had amniotomy performed with a moderate amount of clear fluid. She then progressed to complete and started pushing. Delivery Summary: Patient was placed in the dorsal lithotomy position. Upon maternal pushing the head was delivered atraumatically, but the delivery of the body did not occur quickly. The head of the bed was lowered and the patient received suprapubic pressure. The patient had approximately 80 second shoulder dystocia that appeared to be due to transverse lie. Followed by the anterior shoulder, posterior shoulder, then the remainder of the infant's body. A female was delivered with APGARS of 7 at 1 minute and 9 at 5 minutes. The infant was moving all extremities spontaneously and was placed on its mother's chest . After the cord finished pulsating, the umbilical cord was clamped times two and cut. The placenta delivered intact with three vessel cord. Placenta was not sent to pathology. Thirty units of Pitocin were added to the IV fluid and allowed to run freely. Uterine massage was performed until uterus was deemed firm. Upon inspection of the perineum, a second-degree midline laceration was noted and repaired with a 3-0 Vicryl in a running fashion. Upon re-inspection the patient was hemostatic. Uterus again massaged and found to be firm. Needle and sponge counts were correct. Patient was stable and allowed to recover in L&D room. Infant was stable and remained in room with mother. weight 4062 g
[2022-12-31] MEDS: ACETAMINOPHEN 500 MG TABLET PO SCH (18:07)
[2022-12-31] MEDS: IBUPROFEN 600 MG TABLET PO SCH (18:08)
--- NOTE | 2023-01-01 08:47 | PROVIDER PROGRESS NOTE ---
Subjective - Prog Note Date Prog Note Date: 01/01/23 - Subjective Pt reports feeling: Improved Subjective: Subjective Patient reports she is doing well. Lochia appropriate. Denies heavy bleeding. Ambulating. Pelvic and abdominal pain well-controlled. Tolerating oral intake. Diet: Regular. Voiding without difficulty. Passing flatus. Denies BM. Patient is bonding with baby in room Breast feeding going well. Denies feeling lightheaded, dizzy or excessively fatigued. Control: tubal ligation today Objective General: Alert, oriented, no apparent distress. Cardiovascular: Regular rate. Regular rhythm. Lungs: No increased work of breathing. Abdomen: Uterus firm. At umbilicus. No guarding or rebound. Extremities: No pain on palpation. No cords palpated. Distal pulses intact. Assessment and Plan day 1. -Routine care -Anticipate discharge this evening Desires permanent sterility -Consent signed and in chart. We discussed the risk, benefits, alternatives of tubal ligation. She does have a history of salpingectomy, so we will do close observation of uterine structures. -Plan for mini laparotomy under regional anesthesia. Objective - Vital Signs/Intake & Output Vital Signs: Vital Signs x48h Temp Pulse Resp BP Pulse Ox 01/01/23 07:51 98.4 F 84 16 110/70 100 01/01/23 03:47 99.1 F 87 20 116/70 Intake & Output: Intake & Output 12/29/22 12/30/22 12/31/22 01/01/23 23:59 23:59 23:59 23:59 Intake Total 4845.000 Output Total 2575 Balance 2270.000 - Lab Results Fish Bones: 12/30/22 15:55
[2023-01-01] MEDS ORDERED: MIDAZOLAM 2 MG/2 ML VIAL ONE (08:50)
[2023-01-01] MEDS ORDERED: fentaNYL 100 MCG/2 ML VIAL ONE (08:51)
[2023-01-01] MEDS ORDERED: PROPOFOL 500 MG/50 ML 500 MG/50 ML VIAL ONE (08:51)
--- NOTE | 2023-01-01 10:05 | OPERATIVE REPORT ---
Operative Report - General Admit Date: 12/30/22 Procedure Date: 01/01/23 Planned Procedure: Right salpingectomy via mini laparotomy Pre-Op Diagnosis: Desires permanent sterility Procedure Performed: Right salpingectomy via mini laparotomy Post Op Diagnosis: Status post right salpingectomy - Procedure Note Primary Surgeon: Glenn Chau MD Secondary Surgeon: Yue Nunes MD Anesthesia Provider: Rachel Mccauley CRNA Anesthesia Technique: Spinal Pathology: Right fallopian tube Estimated Blood Loss (mL): 5 Findings: Normal-appearing ovaries bilaterally. Left fallopian tube surgically absent. Right fallopian tube removed and grossly normal. Complications: None - Other Other Information/Narrative: After discussing the risk, benefits, alternatives of the procedure, patient was taken to the operating room where spinal anesthesia was obtained without difficulty. She was placed in the supine position and was draped appropriately. No antibiotics were indicated. After ensuring adequate pain control, an incision approximately 5 cm in length was made infraumbilically. This incision was carried down to the fascia which was grasped with Allis clamps and entered sharply with Hoang scissors. This was carried down to the peritoneum which was elevated with hemostats and entered sharply with Metzenbaum scissors. At that point [facility] retractor used to visualize the tube. A mini Jasvir retractor was placed through the abdominal incision and put into place. The patient was then rotated to the left. The fallopian tube was grasped with a Steve clamp and carried to the fimbriated end. After the fimbriated end was brought to the incision, a LigaSure device was used to coagulate and cut the mesosalpinx and gradually this was carried along the mesosalpinx the tube from the ovary. Near the cornua, the tube was transected and removed from the abdomen. Hemostasis was noted. We again took a look around the uterus to identify the ovaries and no left fallopian tube was seen, consistent with her previous left salpingectomy. The instruments were removed from the abdomen, and the fascia was closed with a running suture of 0 Vicryl. The subcutaneous tissue was closed with 0 Vicryl. The skin was then closed with a running suture of subcutaneous 4-0 Monocryl. The patient was taken to the recovery area in good condition after sponge and needle counts were correct.
[2023-01-01] MEDS: IBUPROFEN 600 MG TABLET PO SCH ×2 (11:35→16:58)
[2023-01-01] MEDS: ACETAMINOPHEN 500 MG TABLET PO SCH (11:35)
--- NOTE | 2023-01-01 12:15 | Discharge Plan ---
Discharge Plan Problem Reviewed?: Yes Disposition: Home, Self Care Condition: Good Diet: Regular Activity Restrictions: Additional Comments Instruction Topics: Vaginal After, Depression No Smoking: If you smoke, Please STOP! Call for help. Follow-up with: Glenn Chau MD [Provider Admit Priv/Credential] -
--- NOTE | 2023-01-01 12:21 | DISCHARGE SUMMARY ---
"Discharge Summary Admit Date: 12/30/22 Discharge Date: 01/01/23 Discharging Provider: Glenn Chau MD Code Status: Attempt Resuscitation Condition at Discharge: Good Discharge Disposition: 01 Home, Self Care - DIAGNOSES Admission Diagnoses: 39 weeks gestation Induction of labor Desires sterility Discharge Diagnoses with Status of Each Condition: 39 weeks gestation Induction of labor Status post spontaneous vaginal delivery Delivery of live paredes Desires sterility Status post tubal ligation - HPI History of Present Illness: Subjective Patient reports she is doing well. Lochia appropriate. Denies heavy bleeding. Ambulating. Pelvic and abdominal pain well-controlled. Tolerating oral intake. Diet: Regular. Voiding without difficulty. Passing flatus. Denies BM. Patient is bonding with baby in room Breast feeding going well. Denies feeling lightheaded, dizzy or excessively fatigued. Control: tubal ligation Objective General: Alert, oriented, no apparent distress. Cardiovascular: Regular rate. Regular rhythm. Lungs: No increased work of breathing. Abdomen: Uterus firm. Below umbilicus. No guarding or rebound. Extremities: No pain on palpation. No cords palpated. Distal pulses intact. Incision: Bandage in place. - CONSULTS | PROCEDURES Procedures: Spontaneous vaginal delivery, tubal ligation - HOSPITAL COURSE Hospital Course: Patient is admitted for induction of labor at 39 weeks gestation. She had an uncomplicated vaginal delivery and healthy . 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 - ALLERGIES Allergies/Adverse Reactions: Allergies Allergy/AdvReac Type Severity Reaction Status Date / Time No Known Drug Allergies Allergy Verified 11/27/22 07:19 - MEDICATIONS Home Medications: Ambulatory Orders Medication Instructions Recorded Confirmed Pnv No.95/Ferrous Fum/Folic AC 1 tab PO DAILY 06/25/22 11/27/22 [ Caplet] Ibuprofen [Motrin] 600 mg PO Q6H PRN #30 tab 01/01/23 oxyCODONE [Roxicodone] 5 mg PO Q4H PRN #8 tablet 01/01/23 - LABS Result Diagrams: 12/30/22 15:55 - FOLLOW UP Follow Up: Follow-up with Glenn Chau MD at [facility] [place] in 1 week. - TIME SPENT Time Spent in Discharge (Minutes): 20"
[2023-01-01 16:36] VITALS: BP 116/68; O2SAT 99
--- NOTE | 2023-01-01 18:27 | Labor Flowsheet ---
Labor Flowsheet Datetime Report Generated by CPN: 01/01/2023 18:26 Datetime: 01/01/2023 16:13 VITAL SIGNS NBP Sys/Kori/Mean (mmHg): 116 : 68 : 80 Pulse: 93 Datetime: 01/01/2023 11:10 SpO2 (%): 100 Datetime: 12/31/2022 18:05 Epidural Procedure Other: Cath Removed; Cath Intact Datetime: 12/31/2022 17:50 Patient Care Comments: st cath Datetime: 12/31/2022 16:46 LaborFlag: Labor Datetime: 12/31/2022 16:32 Membranes Ruptured Date/Time: 12/31/2022 09:43 Datetime: 12/31/2022 16:12 Anesthesia Comments: FELIPE off Datetime: 12/31/2022 15:47 Communication Comments: head Datetime: 12/31/2022 15:45 UTERINE ACTIVITY Monitor Mode: External Frequency (min): 2-3 Quality: Strong Duration (sec): 60-80 Pattern: Normal: <= 5 Contractions in 10 Minutes Resting Tone (Palpate): Relaxed ASSESSMENT A Monitor Mode: External US FHR Baseline Rate : 135 Variability: Moderate 6-25 bpm Accelerations: None Decelerations: Variable Datetime: 12/31/2022 15:31 Pain Assessment Comments: 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 Chau Datetime: 12/31/2022 15:15 Category: Category II Datetime: 12/31/2022 15:00 Pitocin Checklist: At Least 1 Acceleration of 15 bpm x 15 Seconds in 30 Minutes or Adequate Variabi lity; No More than 1 Late Deceleration Occurred in Past 30 Minutes; No More than 2 Variable Decelerat ions > 60 Seconds in Duration and decreasing >60 bpm in 30 minutes; No More than 5 Uterine Contractio ns in 10 Minutes for any 20 Minute Interval; Uterus Palpates Soft between Contractions PAIN Pain Scale: 8 Pain Relief Measures: Comfort Measures Comfort Measures: Coaching Datetime: 12/31/2022 14:48 Monitor Interventions for UA: Coaling Adjusted Datetime: 12/31/2022 14:45 Patient Position/Activity: Left Lateral Datetime: 12/31/2022 14:13 Contraction Comments: toco zeroed Datetime: 12/31/2022 13:36 MEDICATIONS Pitocin (milliunits): Increased to @ 5 Datetime: 12/31/2022 12:18 PATIENT CARE IV/Blood Work: IV Bolus Started Datetime: 12/31/2022 11:56 Temperature (C): 37.0 Datetime: 12/31/2022 11:00 Pain Presence: None/Denies Datetime: 12/31/2022 10:54 Hygiene: Lori Care Datetime: 12/31/2022 09:43 Membrane Status: Ruptured Membranes Rupture Method: Artificial Amniotic Fluid Color: Clear Amniotic Fluid Amount: Moderate Cervix, Position: Anterior Datetime: 12/31/2022 09:00 Respirations: 18 Datetime: 12/31/2022 08:38 Monitor Interventions for FHR: Ultrasound Adjusted Datetime: 12/31/2022 08:16 Vital Sign Comments: BP cuff on upper arm. Pt denies n/v/sob. 250 ml LR bolus started. Datetime: 12/31/2022 07:00 Stage of : Labor Datetime: 12/31/2022 06:28 Comments: tracing maternal due to patient vomiting Datetime: 12/31/2022 06:24 Magnesium/Antihypertensives: Ephedrine IV (mg) @ 0623 Datetime: 12/31/2022 06:15 Actions for Decelerations: IV Bolus Datetime: 12/31/2022 04:29 FHR Baseline Changes: Bradycardia Datetime: 12/31/2022 00:50 Vaginal Bleeding: None Cervix, Consistency: Soft Datetime: 12/31/2022 00:49 Epidural Procedure: Completed Datetime: 12/31/2022 00:38 PROCEDURE TIME OUT Procedure Verify: Correct Patient Identity; Correct Side and Site are Marked; Accurate Procedure Co nsent Form; Agreement on Procedure to be Done; Correct Patient Position; Safety Precautions Based on Patient History or Medication Use ANESTHESIA Anesthesia Plans: Epidural Epidural Positioning: Sitting Datetime: 12/30/2022 20:29 Cervical Ripening Agents: Cytotec @ Datetime: 12/30/2022 16:30 Medication Comments: buccal Datetime: 12/30/2022 15:34 Provider Reviewed Strip: Yes COMMUNICATION Communication: Provider at Bedside Datetime: 12/30/2022 14:54 Temperature Route: Oral
--- NOTE | 2023-01-04 15:04 | ANESTHESIA POST OP EVALUATION ---
Anesthesia Post Eval - Post Anesthesia Eval Vitals: Last Vital Signs Temp 36.6 C 01/01/23 16:33 Pulse 96 01/01/23 16:33 Resp 19 01/01/23 16:33 BP 116/68 01/01/23 16:33 Pulse Ox 99 01/01/23 16:33 O2 Flow Rate CV Function Including HR & BP: Stable Pain Control: Satisfactory Nausea & Vomiting: Negative Mental Status: Baseline Respiratory Status: Airway Patent Hydration Status: Satisfactory Anesthesia Complications: None
== END 2023-01-01 17:55 | disposition home or self-care (01) | DRG 798 ==
LOC: WFO 14:22 → FBP 14:25 → WFO 16:09
PROVIDERS: ADMIT Obstetrics & Gynecology; ATTEND Obstetrics & Gynecology
PROC: 3E0DXGC Introduction of Other Therapeutic Substance into Mouth and Pharynx, External Approach (ICD-10-PCS; 2022-12-30)
PROC: 10E0XZZ Delivery of Products of Conception, External Approach (ICD-10-PCS; principal; 2022-12-31)
PROC: 0KQM0ZZ Repair Perineum Muscle, Open Approach (ICD-10-PCS; 2022-12-31)
PROC: 10907ZC Drainage of Amniotic Fluid, Therapeutic from Products of Conception, Via Natural or Artificial Opening (ICD-10-PCS; 2022-12-31)
PROC: 0UT50ZZ Resection of Right Fallopian Tube, Open Approach (ICD-10-PCS; 2023-01-01)
DX: O70.1 Second degree perineal laceration during delivery (principal); Z37.0 Single live birth; O66.0 Obstructed labor due to shoulder dystocia; Z3A.39 39 weeks gestation of pregnancy; O99.214 Obesity complicating childbirth; Z30.2 Encounter for sterilization
CPT/HCPCS: 59409; 85025; 86850; 86900; 86901; A9270; J7120

== ENCOUNTER 2023-03-10 10:15 | Outpatient (CLI) | payer OTHER ==
--- NOTE | 2023-03-10 18:22 | XRAY Report ---
PROCEDURE: Toe(s) LT INDICATIONS: CONTUSION TO LEFT GREAT TOE TECHNIQUE: One views of the toe(s) acquired. COMPARISON: None. FINDINGS: Bones: Nondisplaced comminuted fracture of the distal aspect of the proximal phalanx of the great toe . Mild hallux valgus deformity. Soft tissues: No suspicious soft tissue densities. IMPRESSION: Nondisplaced comminuted fracture of the distal aspect of the proximal phalanx of the great toe. Reviewed by: Contreras Botello MD on 03/10/2023 6:21 PM PST Approved by: Contreras Botello MD on 03/10/2023 6:21 PM PST Station ID: [id number]
== END 2023-03-10 10:30 | disposition home or self-care (01) ==
LOC: DI.N 10:15
PROVIDERS: ATTEND Nurse Practitioner
DX: S92.415A Nondisplaced fracture of proximal phalanx of left great toe, initial encounter for closed fracture (principal)
CPT/HCPCS: 73660

== ENCOUNTER 2023-10-05 12:27 | Observation (INO) | payer OTHER ==
[2023-10-05] MEDS: ONDANSETRON 4 MG/2 ML VIAL IVP STA (13:14)
[2023-10-05] MEDS: SODIUM CHLORIDE 0.9% 1,000 ML IV ONE (13:15)
--- NOTE | 2023-10-05 13:19 | ED Physician Documentation ---
History of Present Illness - Stated complaint Stated Complaint: VOMITTING - Chief complaint Chief Complaint: General - Additonal information Additional information: 32-year-old female presents emergency department for generalized malaise, sheri sea, vomiting, right buttocks pain and inflammation that is new fevers and chills. Patient is seen by Dr. Ram with [facility]. She has had multiple rectal abscesses that have been drained here in our emergency department and just recently had a mushroom catheter placed about a week ago with [facility]. She was not started on antibiotics at that point in time but as of yesterday she started to feel generalized malaise fevers and chills. She says that the motion catheter is still in place no complaints of that she is not noticing any significant output. PD PAST MEDICAL HISTORY - Past Medical History Cardiovascular: None Respiratory: None Neuro: None Endocrine/Autoimmune: None GI: None RADIUS GRINDER: Ectopic : None Musculoskeletal: None - Past Surgical History Past Surgical History: Yes /RADIUS GRINDER: Dilation and currettage, Other - Present Medications Home Medications: Ambulatory Orders Medication Instructions Recorded Confirmed Ibuprofen [Motrin] 600 mg PO Q6H PRN #30 tab 01/01/23 10/05/23 oxyCODONE [Roxicodone] 5 mg PO Q4H PRN #8 tablet 01/01/23 10/05/23 - Allergies Allergies/Adverse Reactions: Allergies Allergy/AdvReac Type Severity Reaction Status Date / Time No Known Drug Allergies Allergy Verified 10/05/23 12:44 - Social History Does the pt smoke?: No Smoking Status: Never smoker Does the pt drink ETOH?: Yes Does the pt have substance abuse?: No - Immunizations Immunizations are current?: Yes - POLST Patient has POLST: No PD ED PE NORMAL - Vitals Vital signs reviewed: Yes - General General: Alert and oriented X 3, No acute distress, Well developed/nourished - HEENT HEENT: Atraumatic - Cardiac Cardiac: RRR - Respiratory Respiratory: No respiratory distress - Abdomen Abdomen: Normal bowel sounds, Soft, Non tender, No organomegaly - Derm Derm: Other (right buttocks erythem with no induration, blue catheter sutured in place. ) - Extremities Extremities: No edema, No calf tenderness / cord - Neuro Neuro: Alert and oriented X 3, aligning checker 2-12 intact, No motor deficit, No sensory deficit, Normal speech PD ED PE EXPANDED - Rectal Rectal: Other (Right buttocks erythema no induration Blue Mushroom catheter intact) Results - Vitals Vitals: Vital Signs - 24 hr 10/05/23 10/05/23 10/05/23 12:38 13:34 14:04 Temperature 36.9 C Heart Rate 135 H 65 102 H Respiratory 19 18 17 Rate Blood Pressure 132/81 H 130/64 134/62 H O2 Saturation 100 97 99 10/05/23 10/05/23 10/05/23 14:30 15:00 15:50 Temperature Heart Rate 115 H 110 H 124 H Respiratory 18 18 Rate Blood Pressure 131/84 H 130/68 136/83 H O2 Saturation 97 98 95 10/05/23 10/05/23 10/05/23 16:21 16:30 16:34 Temperature 38 C H Heart Rate 116 H 120 H Respiratory 22 20 Rate Blood Pressure 137/87 H 139/86 H O2 Saturation 99 99 10/05/23 10/05/23 10/05/23 17:00 17:30 18:00 Temperature Heart Rate 121 H 122 H 120 H Respiratory 18 18 18 Rate Blood Pressure 147/85 H 132/80 H 122/80 O2 Saturation 98 100 100 10/05/23 10/05/23 10/05/23 18:30 19:22 19:45 Temperature 37.8 C 37.6 C Heart Rate 118 H 122 H Respiratory 18 20 Rate Blood Pressure 124/84 H 132/78 H O2 Saturation 98 99 Oxygen O2 Source Room air - EKG (time done) 1345 EKG releavant findings:: EKG personally interpreted by author of this note. Relevant findings are: Rate: Rate (enter#) (122) Rhythm: Sinus tachycardia [place]: RAD Intervals: Normal HI QRS: Normal Ischemia: Normal ST segments, Other (Probable left atrial enlargement) Computer interpretation: Agree with computer - Labs Labs: Laboratory Tests 10/05/23 10/05/23 10/05/23 13:10 13:10 13:10 WBC 19.2 H RBC 4.63 Hgb 15.1 Hct 46.6 MCV 100.6 H MCH 32.6 H MCHC 32.4 RDW 13.6 Plt Count 243 MPV 10.2 Neut # (Auto) Not Reportable Lymph # (Auto) Not Reportable Faulkner # (Auto) Not Reportable Eos # (Auto) Not Reportable Baso # (Auto) Not Reportable Absolute Nucleated RBC Not Reportable Total Counted 100 Band Neuts % (Manual) 12 H Abnorm Lymph % (Manual) 0 Metamyelocytes % 2 H Nucleated RBC % Not Reportable Neutrophils # (Manual) 16.5 H Lymphocytes # (Manual) 0.6 L Monocytes # (Manual) 1.5 H Eosinophils # (Manual) 0.0 Basophils # (Manual) 0.2 H Differential Comment MANUAL DIFFERENTIAL Platelet Estimate NORMAL (130-450,000) Platelet Morphology NORMAL APPEARANCE RBC Morph Micro Appear 1+ MACROCYTOSIS Sodium 133 L Potassium 3.1 L Chloride 96 L Carbon Dioxide 24 Anion Gap 13.0 BUN 11 Creatinine 0.8 Estimated GFR (MDRD) 84 L Glucose 129 H Lactic Acid 1.5 Calcium 9.4 Total Bilirubin 0.6 AST 28 ALT 34 Alkaline Phosphatase 79 Total Protein 8.6 Albumin 5.1 Globulin 3.5 Albumin/Globulin Ratio 1.5 Urine Color Urine Clarity Urine pH Ur Specific Amery Urine Protein Urine Glucose (UA) Urine Ketones Urine Occult Blood Urine Nitrite Urine Bilirubin Urine Urobilinogen Ur Leukocyte Esterase Urine RBC Urine WBC Ur Squamous Epith Cells Urine Bacteria Urine Culture Comments 10/05/23 10/05/23 13:55 19:42 WBC RBC Hgb Hct MCV MCH MCHC RDW Plt Count MPV Neut # (Auto) Lymph # (Auto) Faulkner # (Auto) Eos # (Auto) Baso # (Auto) Absolute Nucleated RBC Total Counted Band Neuts % (Manual) Abnorm Lymph % (Manual) Metamyelocytes % Nucleated RBC % Neutrophils # (Manual) Lymphocytes # (Manual) Monocytes # (Manual) Eosinophils # (Manual) Basophils # (Manual) Differential Comment Platelet Estimate Platelet Morphology RBC Morph Micro Appear Sodium Potassium Chloride Carbon Dioxide Anion Gap BUN Creatinine Estimated GFR (MDRD) Glucose Lactic Acid 1.8 Calcium Total Bilirubin AST ALT Alkaline Phosphatase Total Protein Albumin Globulin Albumin/Globulin Ratio Urine Color YELLOW Urine Clarity CLEAR Urine pH 6.5 Ur Specific Amery 1.010 Urine Protein NEGATIVE Urine Glucose (UA) NEGATIVE Urine Ketones NEGATIVE Urine Occult Blood SMALL H Urine Nitrite NEGATIVE Urine Bilirubin NEGATIVE Urine Urobilinogen 0.2 (NORMAL) Ur Leukocyte Esterase NEGATIVE Urine RBC 0-5 Urine WBC 0-3 Ur Squamous Epith Cells FEW Squamous Urine Bacteria Rare Urine Culture Comments NOT INDICATED - Rads (name of study) Abdomen pelvis CT with con Relevant Findings:: Final report received, EMP independent interpretation of test, Other (No obvious fluid collection no acute abnormal findings.) PD Medical Decision Making - ED course ED course: 32-year-old female presents emergency department for right buttocks pain, nausea vomiting, fevers and chills. Labs are complete for further evaluation patient was quite tachycardic upon arrival heart rate up to the 130s 140s, significant white count of 19.2, hypokalemia 3.1 and she was given 40 mEq of potassium chloride p.o., lactic acid 1.5 but unfortunately this was taken after patient received a liter of IV fluids as well as IV antibiotics. Urinalysis is unremarkable. I spoke with patient's surgeon Dr. Ram who recommended doing a CT abdomen pelvis with contrast for further evaluation of possible tracking or new abscess collection and CT did not reveal any abscesses or new fluid collection. Patient was started on IV vancomycin and IV Zosyn 2 sets of blood cultures were collected prior to initiation of these antibiotics. Given that patient meets sepsis criteria patient would greatly benefit from hospitalization while we blood cultures are in lab I spoke with Dr. Lopes telehospitalist and she has agreed to admit the patient for IV antibiotics and monitoring of blood cultures. Patient is agreeable to stay. Departure - Departure Disposition: 66 [facility] DC/Xfer Clinical Impression: Sepsis, Cellulitis of buttock, Leukocytosis, Hypokalemia Forms: PCP List
[2023-10-05 13:22] LABS: BASOPHILS % (AUTO) 0.5 %; EOSINOPHILS % (AUTO) 0.1 %; HCT - HEMATOCRIT 46.6 % (37.0-47.0); HGB - HEMOGLOBIN 15.1 g/dL (12.0-16.0); LYMPHOCYTES % (AUTO) 3.5 %; MEAN CORPUSCULAR HEMOGLOBIN 32.6 pg (27.0-31.0); MEAN CORPUSCULAR HGB CONC 32.4 g/dL (32.0-36.0); MEAN CORPUSCULAR VOLUME 100.6 fL (81.0-99.0); MEAN PLATELET VOLUME 10.2 fL (7.9-10.8); MONOCYTES % (AUTO) 8.1 %; NEUTROPHILS % (AUTO) 86.6 %; PLT - PLATELET COUNT 243 10^3/uL (130-450); RED BLOOD COUNT 4.63 10^6/uL (4.20-5.40); RED CELL DISTRIBUTION WIDTH 13.6 % (12.0-15.0); WHITE BLOOD COUNT 19.2 x10^3/uL (4.8-10.8)
[2023-10-05 13:23] LABS: ABNORMAL LYMPHS % (MANUAL) 0 %
[2023-10-05 13:37] LABS: ALBUMIN 5.1 g/dL (3.2-5.5); ALBUMIN/GLOBULIN RATIO 1.5 (1.0-2.2); BILIRUBIN,TOTAL 0.6 mg/dL (0.2-1.0); CALCIUM 9.4 mg/dL (8.5-10.3); CREATININE 0.8 mg/dL (0.6-1.3); POTASSIUM 3.1 mmol/L (3.5-4.5); TOTAL PROTEIN 8.6 g/dL (6.4-8.9)
[2023-10-05 14:20] LABS: BILIRUBIN,URINE NEGATIVE (NEGATIVE); CLARITY,URINE CLEAR (CLEAR); GLUCOSE, URINE (UA) NEGATIVE (NEGATIVE); KETONES,URINE (UA) NEGATIVE (NEGATIVE); LEUKOCYTE ESTERASE, URINE NEGATIVE (NEGATIVE); NITRITE,URINE NEGATIVE (NEGATIVE); OCCULT BLOOD,URINE SMALL (NEGATIVE); PH,URINE 6.5 PH (5.0-7.5); PROTEIN,URINE NEGATIVE (NEGATIVE); UROBILINOGEN,URINE 0.2 (NORMAL) E.U./dL (NORMAL)
[2023-10-05 14:32] LABS: BACTERIA,URINE Rare /HPF (None Seen); RBC,URINE 0-5 /HPF (0-5); SQUAMOUS EPITHELIAL CELL,UR FEW Squamous (<= Few); WBC,URINE 0-3 /HPF (0-5)
[2023-10-05 14:54] LABS: BAND NEUTROPHILS % (MANUAL) 12 %; BASOPHILS # (MANUAL) 0.2 10^3/uL (0-0.1); BASOPHILS % (MANUAL) 1 %; LYMPHOCYTES # (MANUAL) 0.6 10^3/uL (1.5-3.5); LYMPHOCYTES % (MANUAL) 3 %; METAMYELOCYTES % (MANUAL) 2 %; MONOCYTES # (MANUAL) 1.5 10^3/uL (0.0-1.0); NEUTROPHILS # (MANUAL) 16.5 10^3/uL (1.5-6.6)
[2023-10-05 14:55] LABS: DIFFERENTIAL COMMENT MANUAL DIFFERENTIAL; PLATELET ESTIMATE, MANUAL NORMAL (130-450,000) (NORMAL); PLATELET MORPHOLOGY NORMAL APPEARANCE (NORMAL); RBC MORPHOLOGY (MULTIPLE) 1+ MACROCYTOSIS (NORMAL)
[2023-10-05] MEDS: POTASSIUM CHLORIDE 20 MEQ TABLET PO STA (15:23)
[2023-10-05] MEDS: PIPERACILLIN/TAZOBACTAM 3.375 GM in SODIUM CHLORIDE 0.9% MINIBAG 100 ML IV STA (15:50)
[2023-10-05] MEDS ORDERED: VANCOMYCIN 1 GM VIAL ONE (16:26)
[2023-10-05] MEDS: VANCOMYCIN INJ 1.25 GM in SODIUM CHLORIDE 0.9% 250 ML IV ONE (16:29)
[2023-10-05] MEDS ORDERED: iohexoL-300 100 ML VIAL ONE (16:54)
--- NOTE | 2023-10-05 18:48 | CT Report ---
PROCEDURE: Abdomen/Pelvis W INDICATIONS: buttocks abscess CONTRAST: Omni 300 100ml TECHNIQUE: After the administration of intravenous contrast, a CT scan of the abdomen and pelvis was performed. Images were recorded and evaluated at appropriate window settings. Reformats: coronal and sagittal. F or radiation dose reduction, the following was used: automated exposure control, adjustment of mA and /or kV according to patient size. COMPARISON: None. FINDINGS: Image quality: Diagnostic. Lower chest: Unremarkable. Liver: No solid mass. Gallbladder: Unremarkable. Biliary tree: No intrahepatic or extrahepatic dilation, accounting for age. Spleen: No splenomegaly. Pancreas: No pancreatic ductal dilation. Adrenals: No adrenal nodule. Kidneys and ureters: No hydronephrosis. No renal cystic lesion which requires follow up. No solid mas s. Stomach, bowel and peritoneum: No gastric or small bowel dilation. No abnormal wall thickening. No pa thologic free fluid. Lymph nodes: No central or retroperitoneal adenopathy. Vessels: No infrarenal aortic aneurysm. Patent portal vein. PELVIS Reproductive organs: Unremarkable. Bladder: No abnormal wall thickening, accounting for underdistention. Pelvic lymph nodes: No pelvic adenopathy by size criteria. Bones: No aggressive osseous abnormality. Other: No significant ventral or inguinal hernia. IMPRESSION: No imaging visualization of abscess. Recommend direct visual clinical inspection/evaluation. Reviewed by: Angela Ortiz MD on 10/05/2023 6:47 PM PDT Approved by: Angela Ortiz MD on 10/05/2023 6:47 PM PDT Station ID: [id number]
[2023-10-05] MEDS: ACETAMINOPHEN 500 MG TABLET PO STA (19:15)
[2023-10-05] MEDS: KETOROLAC 30 MG/ML VIAL IVP STA (19:43)
[2023-10-05] MEDS ORDERED: ONDANSETRON ODT 4 MG TABLET TL PRN (20:13)
[2023-10-05] MEDS ORDERED: PROMETHAZINE 25 MG/1 ML VIAL IM PRN (20:13)
[2023-10-05] MEDS ORDERED: oxyCODONE 5 MG TABLET PO PRN (20:13)
[2023-10-05] MEDS: HYDROmorphone 0.5 MG/0.5 ML SYRINGE IVP STA (20:46)
--- NOTE | 2023-10-05 20:49 | HISTORY & PHYSICAL EXAMINATION ---
Chief Complaint - Chief Complaint Chief Complaint: leg swelling History of Present Illness - Admitted From Admitted From:: home,ED - History Obtained From Records Reviewed: yes History obtained from: patient Exam Limitations: none - History of Present Illness HPI Comment/Other: is a pleasant 32 yo F with h/o recurrent abscesses and followed by the surgical team at [facility]. A week prior to this presentation, she underwent I&D of a rectal abscess and had placement of a mushroom catheter. She was not placed on antibiotics at that time. 2 days prior to her presentation she noticed increase redness of her right buttocks. She started to have fever and general malaise. Due to concerns for the development of a new abscess she came to the Ed for evaluation. On presentation she met sepsis inclusion criteria, but was not in septic shock. Further evaluation of the cellulitic area only demonstrated inflammation and no signs of new abscess. No surgical intervention was needed, hospitalist was asked to admit for continuation of IV antibiotics and monitoring until sepsis resolved. I performed this visit using real-time telehealth tools, including live video. Patient provided consent to proceed with visit using these telehealth modalities. 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 No MICHELLE - POLST Patient has POLST: No Meds/Allgy - Home Medications Home Medications: Ambulatory Orders Medication Instructions Recorded Confirmed Ibuprofen [Motrin] 600 mg PO Q6H PRN #30 tab 01/01/23 10/05/23 oxyCODONE [Roxicodone] 5 mg PO Q4H PRN #8 tablet 01/01/23 10/05/23 - Allergies Allergies/Adverse Reactions: Allergies Allergy/AdvReac Type Severity Reaction Status Date / Time No Known Drug Allergies Allergy Verified 10/05/23 12:44 Review of Systems - All Other Systems All Other Systems: reports: Reviewed and negative Exam - Vital Signs Reviewed Vital Signs: Yes Vital Signs: Vital Signs x48h Temp Pulse Resp BP Pulse Ox 10/05/23 19:45 37.6 C 10/05/23 19:22 37.8 C 122 H 20 132/78 H 99 10/05/23 18:30 118 H 18 124/84 H 98 10/05/23 18:00 120 H 18 122/80 100 10/05/23 17:30 122 H 18 132/80 H 100 10/05/23 17:00 121 H 18 147/85 H 98 10/05/23 16:34 38 C H 10/05/23 16:30 120 H 20 139/86 H 99 10/05/23 16:21 116 H 22 137/87 H 99 10/05/23 15:50 124 H 136/83 H 95 10/05/23 15:00 110 H 18 130/68 98 10/05/23 14:30 115 H 18 131/84 H 97 10/05/23 14:04 102 H 17 134/62 H 99 10/05/23 13:34 65 18 130/64 97 - Physical Exam General Appearance: positive: No acute distress, Alert Eyes Bilateral: positive: Normal inspection, PERRL Respiratory: positive: Chest non-tender, No respiratory distress, Breath sounds nml Cardiovascular: positive: No murmur, No gallop, Tachycardia Skin: positive: Other (area of cellulitis on right buttocks) Extremities: positive: Non-tender, Full ROM, Nml appearance Sepsis Event Note (H) - Evaluation Current Stage of Sepsis: Sepsis Possible source of Sepsis: positive: Skin/soft tissue, Wound - Sepsis Criteria Sepsis Criteria: Recorded Temperature greater than 38.3C or Less than 36C, Recorded Heart Rate greater than 90 bpm, WBC count greater than 12,000 or less than 4000 Conclusion/Plan - Problem List (1) Cellulitis of buttock Conclusion/Plan: -CT imaging reviewed independently by myself -Per ED attending, case discussed with primary surgeon Dr. Ram from [place], no acute surgical intervention at this time -continue conservative management: antibiotics, wound care -broad spectrum antibiotics: vancomycin and zosyn, blood cultures pending. -wound care consultation -monitor borders of cellutic changes for sign of regression (2) Sepsis Conclusion/Plan: sepsis criteria met on presentation: Fever, tachycardia, leukocytosis -continue to monitor inflammatory markers -closely monitor vitals with continuous telmetry and serial BP and temparture checks -continue IV antibiotic regimen until regression of cellulitis and resolution of inflammatory markers -continue with IV fluids - Lab Results Fish Bones: 10/05/23 13:10 10/05/23 13:10 Core Measures - Anticipated LOS I expect patient to be DC'd or transferred within 96 hours.: Yes - DVT/VTE - Prophylaxis VTE/DVT Device ordered at admit?: Yes Telemedicine Consult Details - Provider Location & Consult Time Telemedicine consultation conducted via videoconferencing?: Yes
[2023-10-05] MEDS: iohexoL-300 100 ML VIAL IVP ONE (21:02)
[2023-10-05] MEDS: SODIUM CHLORIDE 0.9% 1,000 ML IV SCH (21:07)
[2023-10-05] MEDS: SODIUM CHLORIDE FLUSH 0.9% 10 ML SYRINGE IVP PRN (21:08)
[2023-10-05] MEDS: PIPERACILLIN/TAZOBACTAM 3.375 GM in SODIUM CHLORIDE 0.9% MINIBAG 100 ML IV SCH (22:00)
[2023-10-05] MEDS: SODIUM CHLORIDE FLUSH 0.9% 10 ML SYRINGE IVP SCH (23:50)
[2023-10-06] MEDS: VANCOMYCIN INJ 1.25 GM in SODIUM CHLORIDE 0.9% 250 ML IV SCH (04:01)
[2023-10-06] MEDS ORDERED: SENNA 8.6 MG TABLET PO PRN (04:10)
[2023-10-06] MEDS: ACETAMINOPHEN 325 MG TABLET PO PRN (04:13)
[2023-10-06] MEDS: DOCUSATE SODIUM 250 MG CAPSULE PO PRN (04:15)
[2023-10-06] MEDS ORDERED: DOCUSATE SODIUM 250 MG CAPSULE PO SCH (09:00)
[2023-10-06] MEDS ORDERED: SENNA 8.6 MG TABLET PO SCH (09:00)
--- NOTE | 2023-10-06 11:33 | PROVIDER PROGRESS NOTE ---
Subjective - Prog Note Date Prog Note Date: 10/06/23 Prog Note Time: 11:30 - Subjective Pt reports feeling: No change Subjective: The patient is a 32-year-old female who developed issues with rectal abscesses during her last . She has developed 2 fistulas. She has been following with Dr. Marley Ram at [facility] and recently had 2 setons and a mushroom catheter placed. She did well after the procedure but over the past couple of days had noticed some tenderness and pain on her right buttock extending from her rectum. She developed fever and chills at home and presented to the emergency room. She had a CT scan of the abdomen and pelvis that did not reveal any sort of abscess. She was found to have significant cellulitis, multiple SIRS criteria and elevated white blood cell count shaniqua rning for developing sepsis. She was placed on IV vancomycin and Zosyn and referred for admission. Today when I saw her she states that the tenderness has improved a bit. However she thinks that the erythema has spread outside of where it was marked on admission. She has not had further fever or chills at this point. No chest pain, shortness of breath or cough. No nausea vomiting or diarrhea. No urinary complaints. Current Medications - Current Medications Current Medications: Tylenol 650 mg p.o. every 4 hours as needed Colace 250 mg daily as needed constipation Zofran ODT 4 mg every 6 hours as needed nausea and vomiting Oxycodone 5 mg p.o. every 4 hours as needed pain Zosyn 3.375 mg every 8 hours Promethazine 25 mg IM every 6 hours as needed nausea and vomiting Senna 8.6 mg p.o. daily as needed constipation Objective - Vital Signs/Intake & Output Vital Signs: Vital Signs x48h Temp Pulse Resp BP Pulse Ox 10/06/23 07:34 36.6 C 99 16 123/79 99 10/06/23 04:02 36.7 C 98 20 105/73 95 Intake & Output: Intake & Output 10/03/23 10/04/23 10/05/23 10/06/23 23:59 23:59 23:59 23:59 Intake Total 1600 2570 Balance 1600 2570 - Objective General Appearance: positive: No acute distress, Alert Eyes Bilateral: positive: Normal inspection ENT: positive: ENT inspection nml Neck: positive: Nml inspection Respiratory: positive: Chest non-tender, No respiratory distress, Breath sounds nml Cardiovascular: positive: Regular rate & rhythm, No murmur, No gallop. negative: Friction rub Abdomen: positive: Non-tender, No organomegaly, Nml bowel sounds Rectal: positive: Other (Right buttock has erythema that extends from the rectum into the right buttock. The area of erythema was marked on admission and it is spread about half an inch outside of the borders. It is warm and somewhat tender to palpation. Mushroom drain is in place at the site of her fistula.) Skin: positive: Color nml, No rash, Warm, Dry Extremities: positive: Non-tender, Full ROM Neurologic/Psychiatric: positive: Oriented x3, CN's nml (2-12) - Lab Results Fish Bones: 10/05/23 13:10 10/05/23 13:10 Other Labs: Lab Results x24hrs 10/05/23 10/05/23 10/05/23 Range/Units 19:42 13:55 13:10 WBC (4.8-10.8) x10^3/uL RBC (4.20-5.40) 10^6/uL Hgb (12.0-16.0) g/dL Hct (37.0-47.0) % MCV (81.0-99.0) fL MCH (27.0-31.0) pg MCHC (32.0-36.0) g/dL RDW (12.0-15.0) % Plt Count (130-450) 10^3/uL MPV (7.9-10.8) fL Neut # (Auto) Lymph # (Auto) [place]inn # (Auto) Eos # (Auto) Baso # (Auto) Absolute Nucleated RBC Total Counted Band Neuts % (Manual) (0 - 10) % Abnorm Lymph % (Manual) % Metamyelocytes % ( - 0) % Nucleated RBC % Neutrophils # (Manual) (1.5-6.6) 10^3/uL Lymphocytes # (Manual) (1.5-3.5) 10^3/uL Monocytes # (Manual) (0.0-1.0) 10^3/uL Eosinophils # (Manual) (0-0.7) 10^3/uL Basophils # (Manual) (0-0.1) 10^3/uL Differential Comment Platelet Estimate (NORMAL) Platelet Morphology (NORMAL) RBC Morph Micro Appear (NORMAL) Sodium (135-145) mmol/L Potassium (3.5-4.5) mmol/L Chloride (101-111) mmol/L Carbon Dioxide (21-32) mmol/L Anion Gap (6-13) BUN (6-20) mg/dL Creatinine (0.6-1.3) mg/dL Estimated GFR (MDRD) (>89) Glucose (74-104) mg/dL Lactic Acid 1.8 1.5 (0.5-2.2) mmol/L Calcium (8.5-10.3) mg/dL Total Bilirubin (0.2-1.0) mg/dL AST (10-42) IU/L ALT (10-60) IU/L Alkaline Phosphatase (42-121) IU/L Total Protein (6.4-8.9) g/dL Albumin (3.2-5.5) g/dL Globulin (2.1-4.2) g/dL Albumin/Globulin Ratio (1.0-2.2) Urine Color YELLOW Urine Clarity CLEAR (CLEAR) Urine pH 6.5 (5.0-7.5) PH Ur Specific [place] 1.010 (1.002-1.030) Urine Protein NEGATIVE (NEGATIVE) mg/dL Urine Glucose (UA) NEGATIVE (NEGATIVE) mg/dL Urine Ketones NEGATIVE (NEGATIVE) mg/dL Urine Occult Blood SMALL H (NEGATIVE) Urine Nitrite NEGATIVE (NEGATIVE) Urine Bilirubin NEGATIVE (NEGATIVE) Urine Urobilinogen 0.2 (NORMAL) (NORMAL) E.U./dL Ur Leukocyte Esterase NEGATIVE (NEGATIVE) Urine RBC 0-5 (0-5) /HPF Urine WBC 0-3 (0-5) /HPF Ur Squamous Epith Cells FEW Squamous (<= Few) Urine Bacteria Rare (None Seen) /HPF Urine Culture Comments NOT INDICATED 10/05/23 10/05/23 Range/Units 13:10 13:10 WBC 19.2 H (4.8-10.8) x10^3/uL RBC 4.63 (4.20-5.40) 10^6/uL Hgb 15.1 (12.0-16.0) g/dL Hct 46.6 (37.0-47.0) % MCV 100.6 H (81.0-99.0) fL MCH 32.6 H (27.0-31.0) pg MCHC 32.4 (32.0-36.0) g/dL RDW 13.6 (12.0-15.0) % Plt Count 243 (130-450) 10^3/uL MPV 10.2 (7.9-10.8) fL Neut # (Auto) Not Reportable Lymph # (Auto) Not Reportable Linn # (Auto) Not Reportable Eos # (Auto) Not Reportable Baso # (Auto) Not Reportable Absolute Nucleated RBC Not Reportable Total Counted 100 Band Neuts % (Manual) 12 H (0 - 10) % Abnorm Lymph % (Manual) 0 % Metamyelocytes % 2 H ( - 0) % Nucleated RBC % Not Reportable Neutrophils # (Manual) 16.5 H (1.5-6.6) 10^3/uL Lymphocytes # (Manual) 0.6 L (1.5-3.5) 10^3/uL Monocytes # (Manual) 1.5 H (0.0-1.0) 10^3/uL Eosinophils # (Manual) 0.0 (0-0.7) 10^3/uL Basophils # (Manual) 0.2 H (0-0.1) 10^3/uL Differential Comment MANUAL DIFFERENTIAL Platelet Estimate NORMAL (130-450,000) (NORMAL) Platelet Morphology NORMAL APPEARANCE (NORMAL) RBC Morph Micro Appear 1+ MACROCYTOSIS (NORMAL) Sodium 133 L (135-145) mmol/L Potassium 3.1 L (3.5-4.5) mmol/L Chloride 96 L (101-111) mmol/L Carbon Dioxide 24 (21-32) mmol/L Anion Gap 13.0 (6-13) BUN 11 (6-20) mg/dL Creatinine 0.8 (0.6-1.3) mg/dL Estimated GFR (MDRD) 84 L (>89) Glucose 129 H (74-104) mg/dL Lactic Acid (0.5-2.2) mmol/L Calcium 9.4 (8.5-10.3) mg/dL Total Bilirubin 0.6 (0.2-1.0) mg/dL AST 28 (10-42) IU/L ALT 34 (10-60) IU/L Alkaline Phosphatase 79 (42-121) IU/L Total Protein 8.6 (6.4-8.9) g/dL Albumin 5.1 (3.2-5.5) g/dL Globulin 3.5 (2.1-4.2) g/dL Albumin/Globulin Ratio 1.5 (1.0-2.2) Urine Color Urine Clarity (CLEAR) Urine pH (5.0-7.5) PH Ur Specific [place] (1.002-1.030) Urine Protein (NEGATIVE) mg/dL Urine Glucose (UA) (NEGATIVE) mg/dL Urine Ketones (NEGATIVE) mg/dL Urine Occult Blood (NEGATIVE) Urine Nitrite (NEGATIVE) Urine Bilirubin (NEGATIVE) Urine Urobilinogen (NORMAL) E.U./dL Ur Leukocyte Esterase (NEGATIVE) Urine RBC (0-5) /HPF Urine WBC (0-5) /HPF Ur Squamous Epith Cells (<= Few) Urine Bacteria (None Seen) /HPF Urine Culture Comments ABX Reporting Has patient been on IV antibiotics over the past 48 hours?: No Sepsis Event Note (H) - Evaluation Current Stage of Sepsis: Sepsis Possible source of Sepsis: positive: Skin/soft tissue, Wound - Sepsis Criteria Sepsis Criteria: Recorded Temperature greater than 38.3C or Less than 36C, Recorded Heart Rate greater than 90 bpm, WBC count greater than 12,000 or less than 4000 Assessment/Plan - Problem List (1) Sepsis Impression: The patient had signs of early sepsis present on admission. She had multiple SIRS criteria with white blood cell count of 19,000 along with tachycardia and fever. Will repeat labs this morning and also will add a procalcitonin onto her blood work as well. Continue IV antibiotics as outlined below (2) Cellulitis of buttock Impression: Continue IV vancomycin and Zosyn. This is the first full day of treatment. Will try to get records from [facility] today. I have a low threshold to transfer her should she get any worse. Labs were not ordered this morning and I will repeat them today. (3) Hyponatremia Impression: Likely due to her acute illness. Will repeat a chemistry panel this morning as well. (4) Hyperglycemia Impression: Likely reactive to her acute illness. Will repeat a chemistry panel this morning.. Disposition: The patient will remain in observation in the hospital. She will continue IV vancomycin and Zosyn. However her cellulitis seems to be spreading outside of the borders. Will get records from [facility]. Have a low threshold to transfer her should she get any worse. Time spent: 35 minutes
--- NOTE | 2023-10-06 11:35 | PHARMACY PROGRESS NOTE ---
- Best Possible Medication History Admit Date and Time: 10/05/232013 Processed by: Pharmacy Medications reviewed in ED?: Yes Medication History completed: No Patient Interview: Completed Secondary Source(s): Pharmacy records, Insurance records As the person ultimately responsible for medication therapy, providers are able to order a medication from an existing home medication list in [facility] via the "Reconcile Routine" prior to Confirmation of that medication by learning support teacher. Such practice is discouraged except when the physician, in their clinical judgment, deems that a medical need exists for a medication without regard to previous use.
[2023-10-06 11:45] LABS: BASOPHILS # (AUTO) 0.1 10^3/uL (0.0-0.1); BASOPHILS % (AUTO) 0.4 %; EOSINOPHILS # (AUTO) 0.1 10^3/uL (0.0-0.7); EOSINOPHILS % (AUTO) 0.7 %; HCT - HEMATOCRIT 39.1 % (37.0-47.0); HGB - HEMOGLOBIN 12.4 g/dL (12.0-16.0); LYMPHOCYTES # (AUTO) 0.6 10^3/uL (1.5-3.5); LYMPHOCYTES % (AUTO) 4.6 %; MEAN CORPUSCULAR HGB CONC 31.7 g/dL (32.0-36.0); MEAN PLATELET VOLUME 10.3 fL (7.9-10.8); MONOCYTES # (AUTO) 0.4 10^3/uL (0.0-1.0); MONOCYTES % (AUTO) 3.6 %; NEUTROPHILS # (AUTO) 10.9 10^3/uL (1.5-6.6); NEUTROPHILS % (AUTO) 90.3 %; PLT - PLATELET COUNT 199 10^3/uL (130-450); RED BLOOD COUNT 3.76 10^6/uL (4.20-5.40); RED CELL DISTRIBUTION WIDTH 13.5 % (12.0-15.0); WHITE BLOOD COUNT 12.1 x10^3/uL (4.8-10.8)
[2023-10-06 12:05] LABS: ALBUMIN 3.8 g/dL (3.2-5.5); CREATININE 0.5 mg/dL (0.6-1.3); PHOSPHORUS 1.4 mg/dL (2.5-5.0)
[2023-10-06] MEDS: POTASSIUM CHLORIDE 20 MEQ TABLET PO ONE (14:03)
[2023-10-06 14:23] LABS: PROCALCITONIN 1.95 ng/mL (<0.5)
[2023-10-06] MEDS: POTASSIUM PHOSPHATE 15 MMOL in SODIUM CHLORIDE 0.9% 250 ML IV ONE (14:45)
[2023-10-07 04:46] VITALS: O2SAT 97
[2023-10-07] MEDS: IBUPROFEN 800 MG TABLET PO PRN (05:05)
[2023-10-07 08:02] LABS: BASOPHILS # (AUTO) 0.1 10^3/uL (0.0-0.1); BASOPHILS % (AUTO) 0.5 %; EOSINOPHILS # (AUTO) 0.1 10^3/uL (0.0-0.7); EOSINOPHILS % (AUTO) 1.3 %; HCT - HEMATOCRIT 40.3 % (37.0-47.0); HGB - HEMOGLOBIN 12.8 g/dL (12.0-16.0); LYMPHOCYTES # (AUTO) 1.5 10^3/uL (1.5-3.5); LYMPHOCYTES % (AUTO) 13.5 %; MEAN CORPUSCULAR HEMOGLOBIN 32.6 pg (27.0-31.0); MEAN CORPUSCULAR HGB CONC 31.8 g/dL (32.0-36.0); MEAN CORPUSCULAR VOLUME 102.5 fL (81.0-99.0); MEAN PLATELET VOLUME 9.9 fL (7.9-10.8); MONOCYTES # (AUTO) 0.5 10^3/uL (0.0-1.0); MONOCYTES % (AUTO) 4.8 %; NEUTROPHILS # (AUTO) 8.7 10^3/uL (1.5-6.6); NEUTROPHILS % (AUTO) 79.4 %; PLT - PLATELET COUNT 237 10^3/uL (130-450); RED BLOOD COUNT 3.93 10^6/uL (4.20-5.40); RED CELL DISTRIBUTION WIDTH 13.2 % (12.0-15.0)
[2023-10-07 08:17] LABS: CALCIUM 8.7 mg/dL (8.5-10.3); CREATININE 0.5 mg/dL (0.6-1.3); MAGNESIUM 1.8 mg/dL (1.7-2.3); PHOSPHORUS 2.2 mg/dL (2.5-5.0); POTASSIUM 3.5 mmol/L (3.5-4.5)
[2023-10-07 09:22] VITALS: BP 135/93
--- NOTE | 2023-10-07 11:09 | Discharge Plan ---
Discharge Plan Problem Reviewed?: Yes Disposition: Home, Self Care Condition: Good Prescriptions: Cefdinir 300 mg PO BID #14 cap Doxycycline [Vibramycin] 100 mg PO ONCE #14 tablet Diet: Regular Activity Restrictions: No Restrictions Shower Restrictions: No Driving Restrictions: No Plan of Treatment: You were admitted to the hospital with cellulitis of the buttock after having setons placed and a mushroom drain. You were placed in the hospital on broad- spectrum IV antibiotics and you have significantly improved since that time. You still have evidence of cellulitis but the redness is improving and it is no longer tender. Your labs are looking much better. You need to be sure to keep your appointment at [facility] next week. You should return to the emergency room if you develop fever and shaking chills, worsening redness and pain. I am writing for 2 antibiotics and you should complete the full course and follow-up with Dr. Ram next week. Assessment: 1. Early sepsis present on admission This was due to cellulitis of the buttocks. She had multiple SIRS criteria with a markedly elevated white blood cell count associated with fever. Also an elevated procalcitonin as well. Sepsis symptoms are resolving. Plan will be outlined below 2. Cellulitis of the buttock She received 2 days of IV vancomycin and Zosyn. I did obtain records from [facility] and reviewed them. She has an appointment with Dr. Ram on October 13 that she is encouraged to keep. I have transitioned her to p.o. cefdinir and doxycycline and she should complete a 1 week course of therapy at discharge. 3. Hyponatremia Resolved. Likely due to her acute illness. 4. Hyperglycemia Resolved. Again this was likely reactive to her acute illness No Smoking: If you smoke, Please STOP! Call for help. Follow-up with: GLENN BOLTON DO [Primary Care Provider] -
--- NOTE | 2023-10-07 11:16 | DISCHARGE SUMMARY ---
Discharge Summary Admit Date: 10/05/23 Discharge Date: 10/07/23 Discharging Provider: Dianna Torres PA-C Primary Care Provider: Scar Lopze MD Code Status: Attempt Resuscitation Condition at Discharge: Good Discharge Disposition: 01 Home, Self Care - DIAGNOSES Discharge Diagnoses with Status of Each Condition: 1. Early sepsis present on admission This was due to cellulitis of the buttocks. She had multiple SIRS criteria with a markedly elevated white blood cell count associated with fever. Also an elevated procalcitonin as well. Sepsis symptoms are resolving. Plan will be outlined below 2. Cellulitis of the buttock She received 2 days of IV vancomycin and Zosyn. I did obtain records from [facility] and reviewed them. She has an appointment with Dr. Ram on October 13 that she is encouraged to keep. I have transitioned her to p.o. cefdinir and doxycycline and she should complete a 1 week course of therapy at discharge. 3. Hyponatremia Resolved. Likely due to her acute illness. 4. Hyperglycemia Resolved. Again this was likely reactive to her acute illness - HPI History of Present Illness: From the admission HP: is a pleasant 32 yo F with h/o recurrent abscesses and followed by the surgical team at [facility]. A week prior to this presentation, she underwent I&D of a rectal abscess and had placement of a mushroom catheter. She was not placed on antibiotics at that time. 2 days prior to her presentation she noticed increase redness of her right buttocks. She started to have fever and general malaise. Due to concerns for the development of a new abscess she came to the Ed for evaluation. On presentation she met sepsis inclusion criteria, but was not in septic shock. Further evaluation of the cellulitic area only demonstrated inflammation and no signs of new abscess. No surgical intervention was needed, hospitalist was asked to admit for continuation of IV antibiotics and monitoring until sepsis resolved. I performed this visit using real-time telehealth tools, including live video. Patient provided consent to proceed with visit using these telehealth modaliti es. - HOSPITAL COURSE Hospital Course: They were looking the patient was admitted to the hospital. She had evidence of early sepsis at the time of admission with multiple SIRS criteria, multiple markedly elevated white blood cell count and elevated procalcitonin. She had a CT scan of the abdomen and pelvis which did not reveal any underlying abscess. She had [address] with a mushroom drain. She was started on IV vancomycin and Zosyn. Yesterday her cellulitis had expanded outside of where it was marked on discharge however it was much less angry and the erythema was resolving and it was much less tender. White blood cell count was improving. Today her white blood cell count is down to 11.0 today down from 19.2 on admission. She states the area is much less tender. The area is still somewhat erythematous but now pink instead of angry red. She feels that she can manage at home. She has an appointment to follow-up with Dr. Ram at [facility] on 10/14/2023 and she should keep that appointment. She will complete a course of p.o. cefdinir and p.o. doxycycline in the outpatient setting and is advised to complete the full course of treatment. At this point maximum hospital benefit has been reached. The patient will be discharged today in stable condition. - ALLERGIES Allergies/Adverse Reactions: Allergies Allergy/AdvReac Type Severity Reaction Status Date / Time No Known Drug Allergies Allergy Verified 10/05/23 12:44 - MEDICATIONS Home Medications: Ambulatory Orders Medication Instructions Recorded Confirmed Ibuprofen [Motrin] 600 mg PO Q6H PRN #30 tab 01/01/23 10/05/23 Acetaminophen [Tylenol] 1,000 mg PO Q6H PRN 10/06/23 10/06/23 Docusate Sodium [Dulcolax Stool 200 mg PO DAILY 10/06/23 10/06/23 Softener] Psyllium [Metamucil] 1 each PO DAILY 10/06/23 10/06/23 Cefdinir 300 mg PO BID #14 cap 10/07/23 Doxycycline [Vibramycin] 100 mg PO ONCE #14 tablet 10/07/23 - PHYSICAL EXAM AT DISCHARGE General Appearance: positive: No acute distress Eyes Bilateral: positive: Normal inspection ENT: positive: ENT inspection nml Neck: positive: Nml inspection Respiratory: positive: Chest non-tender, No respiratory distress, Breath sounds nml Cardiovascular: positive: No murmur, No gallop, Tachycardia. negative: Friction rub Abdomen: positive: Non-tender, No organomegaly, Nml bowel sounds Rectal: positive: Other (She still has area of cellulitis however it is pink today instead of red. It is much less warm to the touch and is not tender. Mushroom drain is visible and appears to be intact) Skin: positive: Color nml, No rash, Warm, Dry Neurologic/Psychiatric: positive: Oriented x3, CN's nml (2-12) - LABS Result Diagrams: 10/07/23 07:54 10/07/23 07:54 - SEPSIS Current Stage of Sepsis: Sepsis Possible source of Sepsis: Skin/soft tissue, Wound Sepsis Criteria: Recorded Temperature greater than 38.3C or Less than 36C, Recorded Heart Rate greater than 90 bpm, WBC count greater than 12,000 or less than 4000 - FOLLOW UP Follow Up: The patient will follow-up with Dr. Ram next week and she should follow-up with her primary care physician within the next 1 to 2 weeks as well. - TIME SPENT Time Spent in Discharge (Minutes): 45
== END 2023-10-07 12:06 | disposition home or self-care (01) ==
LOC: ED 12:27 → MS2 20:14
PROVIDERS: ADMIT Hospitalist; ATTEND Physician Assistant
DX: A41.9 Sepsis, unspecified organism (principal); L03.317 Cellulitis of buttock; E87.6 Hypokalemia; E87.1 Hypo-osmolality and hyponatremia; R73.9 Hyperglycemia, unspecified
CPT/HCPCS: 36415; 74177; 80053; 80069; 81001; 82607; 82746; 83605; 83735; 84145; 85025; 87040; 93005; 96361; 96365; 96366; 96367; 96368; 96375; 96376; 99285; A9270; G0378; J3370; Q9967; 87086